=== PATIENT | female | born 1940 | race Caucasian/White ===

== ENCOUNTER 2016-09-15 00:12 | Inpatient (IN) ==
--- NOTE | 2016-09-15 01:27 | Emergency Department Note ---
Arrival - Arrival Chief Complaint: Fever Stated Complaint: fever, vomiting ED Nursing Triage Note: Patient to room via ems. Patient was transfered from [facility] for small bowel obstruction, uti. Patient has an NG tube at this time but is not hooked to suction. Mode of Arrival: Stretcher Limitations: Physical Limitation Source: Family, Old Records Reviewed Time Seen by Provider: 09/15/16 01:24 - History of Present Illness HPI Narrative: The patient was transferred here from [facility] for small bowel obstruction. She began having some vomiting last night. Today discontinued and she also had some fever. She was seen at [facility] where a CT revealed small bowel obstruction. She also had a UTI. The family states her colostomy output has remained normal. Allergies/Adverse Reactions: Allergies Allergy/AdvReac Type Severity Reaction Status Date / Time Donepezil [From Aricept] Allergy Severe ANAPHYLAXIS Verified 09/15/16 00:22 aripiprazole [From Abilify] Allergy Unknown Unknown/Unable Verified 09/15/16 00: 22 to obtain Home Medications: Home Medications Medication Instructions Recorded Confirmed Type Levothyroxine Tab [Synthroid Tab] 50 mcg PO DAILY@0700 05/08/15 09/15/16 History [place] [facility] Tab 300 mg PO BID 05/08/15 09/15/16 History Docusate Sodium Cap [Colace Cap] 100 mg PO BID #60 capsule 09/04/15 09/15/16 Rx amLODIPine [Norvasc] 5 mg PO DAILY 09/15/16 09/15/16 History Review of System - Review of System ROS unobtainable: due to mental status - Review of System Constitutional: Present: fever Gastrointestinal: Present: vomiting Medical,Surgical,& Family Hx - Medical History Cardio: History of: Hypertension Neurology: History of: Dementia Endocrine: History of: Thyroid Disorder No history of: Diabetes Mellitus (NIDDM) Respiratory: History of: Pneumonia No history of: COPD Genitourinary: Comment Only: Problems (urinary incontinence) Gastrointestinal: History of: Bowel Obstruction, GI Problems Musculoskeletal: History of: Musculoskeletal Problems (wheelchair/bed bound more than one year) No history of: Amputation Other: History of: Miscellaneous Medical Problems (early skin breakdown on the buttocks) - Surgical History Cardiac Surgeries: Patient Denies: Cardiac Catheterization Thoracic Surgeries: Patient denies;: Organ Transplant Neurologic Surgeries: Patient denies: Neurologic Surgery Abdominal Surgeries: Surgical HX of: Abdominal Surgery (colostomy) - Family History Family History: Reports;: Family Cancer (mother), Family Diabetes (sister type 1 ) - Social History Smoking Status: Unknown if ever smoked Frequency of Alcohol Use: Unknown Type of Drug Use: Unknown Exam Physical Examination: GENERAL: Sleeping. Arouses somewhat but will not speak. Cooperation is minimal. No acute distress. HEENT: Normocephalic and atraumatic. NG tube in place.. The patient will not cooperate with oropharyngeal exam. NECK: Normal inspection. Supple. No lymphadenopathy or meningismus. LUNGS: No respiratory distress. Clear to auscultation bilaterally, no wheezes, rales or rhonchi. HEART: Regular rate and rhythm. ABDOMEN: Soft, nontender and nondistended with hyperactive bowel sounds. Colostomy. BACK: Normal inspection. SKIN: Color normal. Warm and dry. EXTREMITIES: Extremities are nontender. No pedal edema. Patient is contracted. NEUROLOGICAL/PSYCHIATRIC: Lethargic. Will not cooperate with neuro exam. Cannot assess orientation. Vital Signs: Vital Signs Temperature 99.2 F 09/15/16 00:13 Pulse Rate 99 H 09/15/16 00:37 Respiratory Rate 15 09/15/16 00:37 Blood Pressure 163/86 09/15/16 00:37 O2 Sat by Pulse Oximetry 96 09/15/16 00:37 Course - Reevaluation(s) Reevaluation #1: I have discussed the patient with Dr. Pyle and will admit him for further workup. Time: 01:35 Results - Labs Lab Results: I have reviewed the patients labs Labs: Lab work was done at [facility] and is significant as follows: White blood cells 17.8 Hemoglobin 14.6 Hematocrit 45.7 Platelets 261 Neutrophils 74.9% Glucose 120 BUN 11 Creatinine 0.9 Bilirubin 0.5 ALT 18 AST 14 Lactic acid 0.9 Urine white blood cells too numerous to count Urine bacteria 3+ - Impressions CT of the abdomen and pelvis done at [place] shows a significant small bowel obstruction. Disposition Clinical Impression: Small bowel obstruction, UTI (urinary tract infection) Case discussed with: patient, patient's family Disposition: Still a Patient Condition: Stable Time of Disposition: 01:36
[2016-09-15] MEDS ORDERED: ONDANSETRON 4 MG/2 ML VIAL IV PRN (02:31)
[2016-09-15] MEDS ORDERED: ACETAMINOPHEN 325 MG TABLET PO PRN ×2 (02:31→09:51)
[2016-09-15] MEDS ORDERED: MORPHINE 2 MG/1 ML SYRINGE IV PRN (02:31)
[2016-09-15] MEDS: LEVOFLOXACIN INJ 750 MG in PREMIX 1 EACH IV SCH (03:36)
[2016-09-15] MEDS: DEXTROSE 5% LACTATED RINGERS 1,000 ML IV SCH ×3 (03:36→17:57)
[2016-09-15] MEDS ORDERED: PANTOPRAZOLE 40 MG TABLET PO SCH (09:00)
[2016-09-15] MEDS ORDERED: HYDROmorphone 2 MG/1 ML VIAL IV PRN (09:51)
--- NOTE | 2016-09-15 10:06 | General Surg History&Physical ---
Assessment and Plan - Time spent with patient Time spent with patient: Greater than 30 minutes (1) Small bowel obstruction Status: Acute Assessment and plan: Impression: 1. Nausea and vomiting questionable small bowel obstruction versus constipation 2. Fever etiology unclear at this time. 3. Possible urinary tract infection. 4. Alzheimer's disease. Plan: Maintain some NG tube drainage at this point time with careful observation. We will run some antibiotics to we get a good culture back from the urine and go ahead and culture her blood at this point. Open we will start some liquids tomorrow and see how she is doing at that time. Current Visit: No History of Present Illness Chief complaint: Admitted for vomiting and questionable small bowel obstruction History of present illness: Ms. Barrett is a 76 year old female white who has been a pretty much bedridden to chair patient due to advanced Alzheimer's disease. 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 She has had multiple episodes for nausea and vomiting and distention that were basically determined related to constipation. The family got into the habit and learn how to irrigate the colostomy to help keep things functional during this time. We had not seen her for some time. She came back in because she started to have one episode or no more than 2 of vomiting that the family was concerned about. They took her to [place] where they did a CT scan that was read out as being possible small bowel obstruction. She was admitted and put on some IV antibiotics. She had an NG tube placed and has tolerated very little drainage from it at this time. So far she has shown no sign of any significant obstructive process at this point time the abdomen is soft and it has normal bowel sounds. We have seen this phenomenon before own her and she is always would improve and open up light her own. Organic continue just to keep her with nothing by mouth at this time to allow things to see if they will improved before we consider starting any diet. She was running a little fever and that was a main concern the family was fever that she had developed and there is a possibility she has urinary tract infection will check that out when she is here. Home Medications Medication Instructions Recorded Confirmed Type Levothyroxine Tab [Synthroid Tab] 50 mcg PO DAILY@0700 05/08/15 09/15/16 History [place] [facility] Tab 300 mg PO BID 05/08/15 09/15/16 History Docusate Sodium Cap [Colace Cap] 100 mg PO BID #60 capsule 09/04/15 09/15/16 Rx amLODIPine [Norvasc] 5 mg PO DAILY 09/15/16 09/15/16 History Allergies Allergy/AdvReac Type Severity Reaction Status Date / Time Donepezil [From Aricept] Allergy Severe ANAPHYLAXIS Verified 09/15/16 00:22 aripiprazole [From Abilify] Allergy Unknown Unknown/Unable Verified 09/15/16 00: 22 to obtain Medical,Surgical,& Family Hx - Medical History Cardio: History of: Hypertension Neurology: History of: Dementia Endocrine: History of: Thyroid Disorder No history of: Diabetes Mellitus (NIDDM) Respiratory: History of: Pneumonia No history of: COPD Genitourinary: History of: Recurring Urinary Tract Infections, Problems ( urinary incontinence) Gastrointestinal: History of: Bowel Obstruction, GI Problems Musculoskeletal: History of: Musculoskeletal Problems (wheelchair/bed bound more than one year) No history of: Amputation Other: History of: Miscellaneous Medical Problems (early skin breakdown on the buttocks) - Surgical History Cardiac Surgeries: Patient Denies: Cardiac Catheterization Thoracic Surgeries: Patient denies;: Organ Transplant Neurologic Surgeries: Patient denies: Neurologic Surgery Abdominal Surgeries: Surgical HX of: Abdominal Surgery (colostomy) - Family History Family History: Reports;: Family Cancer (mother), Family Diabetes (sister type 1 ) - Social History Smoking Status: Never smoker Frequency of Alcohol Use: None Type of Drug Use: None Exam - Constitutional Vitals: Period Temp Pulse Resp BP Sys/Tompkins Pulse Ox Last 24 Hr 99.0 F-99.1 F 97-109 16-20 136-184/71-86 97-99 General appearance: mild distress - Head Head exam: Present: normal inspection - ENT ENT exam: Present: normal exam - Neck Neck exam: Present: normal inspection - Respiratory Respiratory exam: Present: rales, rhonchi - Cardiovascular Cardiovascular exam: Present: RRR - GI/Abdominal GI/Abdominal exam: Present: hypoactive bowel sounds, soft. Absent: distended, tenderness - Extremities Exam Extremities exam: Present: normal inspection, normal capillary refill - Back Exam Back exam: Present: normal inspection - Neurological Exam Neurological exam: Present: altered - Skin Skin exam: Present: normal color, warm, dry 12 point system: reviewed and no additional remarkable complaints except as stated Quality Measures - VTE Contraindication to Pharmacological VTE Prophylaxis: Clinical assessment deems Pt at low risk, no prophalaxis needed Results - Labs Lab Results: I have reviewed the past 24 hour labs
[2016-09-15] MEDS: ALUMINUM/MAGNES/SIMETH MAX STR 30 ML UDCUP PO SCH ×3 (10:36→22:47)
[2016-09-15] MEDS: metroNIDAZOLE INJ 500 MG in PREMIX 1 EACH IV SCH ×2 (10:36→17:56)
[2016-09-15] MEDS ORDERED: SKIN HEALING OINT (AQUAPHOR) 50 GM TUBE TOP PRN (11:07)
--- NOTE | 2016-09-15 12:00 | XRay Report ---
Referring Physician: Prem Pyle Exam: XR chest 1V portable Date: September 15, 2016 at 11:02 AM Reason: Fever Comparison: Chest one view portable September 14, 2016 Findings: A feeding tube is in place with its distal tip within the gastric fundus. The cardiac silhouette is normal in size. There is minimal atelectasis within both lower lung zones. No pneumothorax or pleural effusion is identified. No acute osseous process is seen. Impression: 1. Minimal scattered atelectasis within both lower lung zones. 2. A feeding tube is in place with its distal tip within the gastric fundus. PROCEDURE INTERPRETED AT [facility] DEPARTMENT OF RADIOLOGY Final Report Signed by: Dr. Mireya Schmitt
[2016-09-15 14:21] LABS: Apearance,Urine CLOUDY (Clear); Bilirubin,Urine Negative (Negative); Blood, Urine Small mg/dL (Negative); Glucose,Urine (UA) Negative (Negative); Ketones,Urine Negative (Negative); Nitrite,Urine Negative (Negative); Protein,Urine 100 MG/DL; RBC,Urine 6 /HPF (0-4); Urine Color Amber (Yellow); Urine Specific Gravity 1.005 (1.001-1.035); Urine Urobilinogen < 2.0 EU/DL (0.2-1.0); WBC,Urine 1362 /HPF (0-6)
[2016-09-15] MEDS: LITHIUM ER 300 MG TABLET PO SCH (22:46)
[2016-09-16] MEDS: metroNIDAZOLE INJ 500 MG in PREMIX 1 EACH IV SCH ×3 (02:19→17:58)
[2016-09-16] MEDS: DEXTROSE 5% LACTATED RINGERS 1,000 ML IV SCH ×3 (02:22→20:18)
[2016-09-16] MEDS: LEVOFLOXACIN INJ 750 MG in PREMIX 1 EACH IV SCH (04:00)
[2016-09-16] MEDS: ALUMINUM/MAGNES/SIMETH MAX STR 30 ML UDCUP PO SCH ×4 (04:02→21:15)
[2016-09-16 06:39] LABS: Basophils # 0.1 10*3/uL (0.0-0.2); Basophils % 0.5 % (0.0-0.8); Eosinophils # 1.7 10*3/uL (0.0-0.87); Eosinophils % 17.8 % (0.00-10.9); Hematocrit 38.8 VOL% (35.7-47.0); Hemoglobin 12.7 GM/DL (12.0-16.0); Immature Granulocytes % 0.4 %; Immature Granulocytes Absolute 0.04 #; Lymphocytes # 1.5 10*3/uL (1.4-4.0); Lymphocytes % 15.5 % (21.3-54.2); Mean Corpuscular HGB Conc 32.7 GM/DL (32-36); Mean Corpuscular Hemoglobin 32 PG (27-34); Mean Corpuscular Volume 96.3 FL (87-102); Mean Platelet Volume 10.1 FL (9.6-12.0); Monocytes # 0.8 10*3/uL (0.11-0.8); Monocytes % 8.6 % (1.7-12.7); Neutrophils # 5.4 10*3/uL (1.4-7.4); Neutrophils % 57.2 % (38.7-73.9); Platelet Count 225 T/CUMM (130-400); Red Blood Count 4.03 MC/CUMM (3.8-5.5); Red Cell Distribution Width 13.2 % (9.3-17.3); White Blood Count 9.5 T/CUMM (4-12)
[2016-09-16] MEDS: LEVOTHYROXINE 50 MCG TABLET PO SCH (06:56)
[2016-09-16 07:07] LABS: Eosinophils 18 % (0-10); Hypochromasia Slight; Lymphocytes 11 % (20-55); Segmented Neutrophils 65 % (50-85); Total Cells Counted 100
[2016-09-16 07:08] LABS: Platelet Estimate Normal
[2016-09-16 07:15] LABS: Albumin 3.3 G/DL (3.4-5.0); Bilirubin,Total 1.3 MG/DL (0.2-1.0); Calcium 8.8 MG/DL (8.5-10.1); Magnesium 2.1 MG/DL (1.8-2.4); Osmolality,Calculated 285.7 MOS/KG (273-304); Potassium 3.5 MMOL/L (3.5-5.1); Total Protein 6.2 G/DL (6.4-8.3)
--- NOTE | 2016-09-16 07:44 | XRay Report ---
XR abdomen 1V Indication: SBO Comparison: Abdominal x-ray dated October 05, 2015 Technique: Single frontal view of the abdomen Findings: Nonspecific bowel gas pattern. Ostomy projects over the left lower quadrant. Multiple surgical clips noted within the lower abdomen and pelvis. Presumed pelvic phleboliths. Osseous structures appear grossly unchanged. IMPRESSION: No acute abnormality demonstrated. PROCEDURE INTERPRETED AT [facility] DEPARTMENT OF RADIOLOGY Final Report Signed by: Dr Myron Wall
--- NOTE | 2016-09-16 08:22 | XRay Report ---
XR chest 1V portable Indication: Fever Comparison: Chest x-ray dated September 15, 2016 Technique: Single frontal view of the chest Findings: Cardiomediastinal silhouette is stable in configuration. Continued mild elevation of left hemidiaphragm as well as chronic change of the lungs and minimal bilateral basilar atelectasis. Skinfold projects over the lateral/lower left lung. Osseous and surrounding soft tissue structures otherwise appear grossly unchanged. IMPRESSION: No adverse interval change. PROCEDURE INTERPRETED AT [facility] DEPARTMENT OF RADIOLOGY Final Report Signed by: Dr Myron Wall
[2016-09-16] MEDS: LITHIUM ER 300 MG TABLET PO SCH ×2 (09:00→21:28)
[2016-09-16] MEDS: amLODIPine 5 MG TABLET PO SCH (09:00)
[2016-09-16] MEDS: PANTOPRAZOLE 40 MG VIAL IV SCH (09:07)
--- NOTE | 2016-09-16 11:01 | General Surgery Progress Note ---
Assessment and Plan - Time spent with patient Time spent with patient: Less than 30 minutes (1) Small bowel obstruction Status: Acute Assessment and plan: 09/16/[address] evidence of partial small bowel obstruction. Nothing seen on today's films to suggest obstruction and she seems comfortable with a normal abdominal examination. We will clamp NG tube and add clears, watch for signs of obstruction. This may be a pseudoobstruction type pattern. Given her history of Parkinson's we will progress cautiously, holding the NG tube for now and watch for signs of nausea or vomiting. Current Visit: No (2) Urinary tract infection Status: Acute Assessment and plan: 09/16/2016. Gram-negative urinary tract infection. Labs and vital signs are stable and there is nothing to suggest urosepsis. She has Levaquin currently ordered, and watch for signs of improvement. Current Visit: No Exam - Constitutional Vitals: Period Temp Pulse Resp BP Sys/Tompkins Pulse Ox Last 24 Hr 98.6 F-99.8 F 97-114 14-20 116-175/68-98 95-97 General appearance: no acute distress - Respiratory Respiratory exam: Present: clear to auscultation bilaterally - GI/Abdominal GI/Abdominal exam: Present: normal bowel sounds, other (Left lower quadrant colostomy with no stool in bag. Stoma is pink.). Absent: distended, guarding Results - Labs CBC & BMP: 09/16/16 05:34 09/16/16 05:34 Lab Results: I have reviewed the past 24 hour labs (Labs are stable. KUB shows no obstructive process. chest x-ray shows no acute changes. Micro shows gram- negative rods on preliminary urine specimen.) Quality Measures - VTE Contraindication to Pharmacological VTE Prophylaxis: Clinical assessment deems Pt at low risk, no prophalaxis needed
[2016-09-17] MEDS: metroNIDAZOLE INJ 500 MG in PREMIX 1 EACH IV SCH ×3 (01:43→17:52)
[2016-09-17] MEDS: LEVOFLOXACIN INJ 750 MG in PREMIX 1 EACH IV SCH (03:19)
[2016-09-17] MEDS: ALUMINUM/MAGNES/SIMETH MAX STR 30 ML UDCUP PO SCH ×4 (03:20→21:14)
[2016-09-17] MEDS: DEXTROSE 5% LACTATED RINGERS 1,000 ML IV SCH ×4 (06:34→17:37)
[2016-09-17] MEDS: LEVOTHYROXINE 50 MCG TABLET PO SCH (06:35)
--- NOTE | 2016-09-17 07:01 | XRay Report ---
XR abdomen 1V Indication: SBO Comparison: Abdominal x-ray dated September 16, 2016 Technique: Single frontal view of the abdomen Findings: Nonspecific bowel gas pattern. Ostomy again noted projecting over the left lower quadrant. Multiple clips again project over the left lower abdomen and pelvis. Diffuse osteopenia. Presumed pelvic phleboliths. IMPRESSION: No acute abnormality or adverse interval change demonstrated. PROCEDURE INTERPRETED AT [facility] DEPARTMENT OF RADIOLOGY Final Report Signed by: Dr Myron Wall
[2016-09-17] MEDS: PANTOPRAZOLE 40 MG VIAL IV SCH (08:08)
[2016-09-17] MEDS: amLODIPine 5 MG TABLET PO SCH (08:08)
[2016-09-17] MEDS: LITHIUM ER 300 MG TABLET PO SCH ×2 (08:08→20:35)
--- NOTE | 2016-09-17 09:26 | General Surgery Progress Note ---
Assessment and Plan - Time spent with patient Time spent with patient: Less than 30 minutes (1) Small bowel obstruction Status: Acute Assessment and plan: 09/17/16 Improving SBO. We will plan to irrigate ostomy today, give 30mL Mineral oil per NG, then D/C and advance diet as tolerated. She certainly is more alert today. 09/16/[address] evidence of partial small bowel obstruction. Nothing seen on today's films to suggest obstruction and she seems comfortable with a normal abdominal examination. We will clamp NG tube and add clears, watch for signs of obstruction. This may be a pseudoobstruction type pattern. Given her history of Parkinson's we will progress cautiously, holding the NG tube for now and watch for signs of nausea or vomiting. Current Visit: No (2) Urinary tract infection Status: Acute Assessment and plan: 09/16/2016. Gram-negative urinary tract infection. Labs and vital signs are stable and there is nothing to suggest urosepsis. She has Levaquin currently ordered, and watch for signs of improvement. Current Visit: No Subjective Patient reports: Present: other (Pt verbalizes today that she is better. ) Exam - Constitutional Vitals: Period Temp Pulse Resp BP Sys/Tompkins Pulse Ox Last 24 Hr 98.6 F-99.2 F 80-106 16-20 135-162/67-79 96-97 General appearance: no acute distress, other (She is awake and alert; she communicates verbally, mostly unintelligible words but she does understandibly say she feels better.) - ENT Mouth exam: Present: dry mucosa - Cardiovascular Cardiovascular exam: Present: RRR - GI/Abdominal GI/Abdominal exam: Present: normal bowel sounds, soft, other (No stool in ostomy bag.). Absent: guarding, tenderness Results - Labs CBC & BMP: 09/16/16 05:34 09/16/16 05:34 Lab Results: I have reviewed the past 24 hour labs - Diagnostic Findings Procedure: KUB x-ray: report reviewed by me (Normal KUB) Quality Measures - VTE Contraindication to Pharmacological VTE Prophylaxis: Clinical assessment deems Pt at low risk, no prophalaxis needed
[2016-09-17] MEDS ORDERED: MINERAL OIL 30 ML UDCUP PO ONE (10:00)
[2016-09-18] MEDS: metroNIDAZOLE INJ 500 MG in PREMIX 1 EACH IV SCH ×2 (01:35→10:35)
[2016-09-18] MEDS: DEXTROSE 5% LACTATED RINGERS 1,000 ML IV SCH ×2 (03:24→10:07)
[2016-09-18] MEDS: LEVOFLOXACIN INJ 750 MG in PREMIX 1 EACH IV SCH (03:26)
[2016-09-18] MEDS: ALUMINUM/MAGNES/SIMETH MAX STR 30 ML UDCUP PO SCH ×2 (03:27→08:59)
[2016-09-18] MEDS: LEVOTHYROXINE 50 MCG TABLET PO SCH (06:28)
[2016-09-18] MEDS: amLODIPine 5 MG TABLET PO SCH (08:59)
[2016-09-18] MEDS: PANTOPRAZOLE 40 MG VIAL IV SCH (09:00)
[2016-09-18] MEDS: LITHIUM ER 300 MG TABLET PO SCH (09:00)
[2016-09-18 11:26] VITALS: BP 120/62
--- NOTE | 2016-09-18 12:03 | Discharge Summary ---
Hospital Course - Hospital Course Hospital Course: 09/18/2016 Brief summary This 76-year-old white female was admitted to the emergency room on 09/15/2016 after onset the previous evening of nausea and vomiting. She has no neurological deficit, with some mild dementia. She she is completely bedbound and had under gone a diverting colostomy for sigmoid volvulus in April 2015. Since that time she has had intermittent bouts of small bowel obstruction, but has not yet not required any additional surgery. With the onset nausea and vomiting her family became concerned and she was taken to the emergency room at [facility], where she was found to have CT evidence of small bowel obstruction. White count was not elevated other labs were essentially within normal limits, except for an abnormal urinalysis which suggest UTI. At that point it was felt that she would benefit from transfer to this facility, and she was brought by ambulance to [facility]. Upon arrival to the hospital here she was found to have a white count 15,000, NG in place with very little output, and had she had normoactive bowel sounds, was not distended, and showed no external clinical signs of guarding or tenderness. We elected to admit her, place her on IV fluids and bowel rest, and low suction to the NG tube. She was given Levaquin IV empirically to treat urinary tract infection. Following morning she continued having normoactive bowel sounds, and her serial x-rays showed good bowel gas pattern. We advanced her to clear liquids, which he tolerated well. We had no solid stool output from the ostomy, so we began irrigating the ostomy, with good results. She did have what appeared to be very constipated stool, so at that point we added mineral oil per NG tube. Her diet was advanced to full liquids, which she tolerated extremely well, with very good appetite, and today we are able to advance her to soft diet. She is actually quite alert today and she will respond occasionally to verbal stimuli, and does indicate verbally that she is not in any discomfort. The family is adequately prepared to take care of her at home, and she does have 24 hour sitters at home, and home health to support her in addition. Therefore with her ostomy functioning she has had absolutely no other episodes of nausea and vomiting, and the urinary tract infection is treated. We will therefore discharge her home today. We will keep her on an additional 5 days of p.o. Levaquin and have him use mineral oil p.o. for 1-2 doses as needed as an adjunct to her ostomy irrigations. We will have her continue all of her other home medications, and plan to follow-up in our office in approximately 6 weeks, unless she exhibits any signs of recurrence. She will also follow-up with her primary care physician for routine medical conditions. - Time spent with patient Time with patient DS: Less than 30 minutes Diagnosis - Discharge Diagnosis (1) Small bowel obstruction Status: Acute (2) Urinary tract infection Status: Acute Specialty Discharge - Follow Up or Referrals Follow up with: Prem Pyle MD [Physician] - (4-6 weeks) Discharge Plan - Discharge Data Disposition: Disch To Home/Self Care Condition at Discharge: Stable Discharge Diet: advance to your usual diet, other (Take 1-2 tablespoons of mineral oil by mouth once or twice weekly as needed if the stool seems dry) Hygiene: no restrictions Contact your physician if you experience:: fever over 101, Nausea/Vomiting Wound / Dressing Care Instructions: Continue every other day colostomy irrigations as previously - Discharge Medications New levoFLOXacin [Levaquin] 500 mg PO DAILY #5 tablet Continue Levothyroxine Tab [Synthroid Tab] 50 mcg PO DAILY@0700 [place] [facility] Tab 300 mg PO BID Docusate Sodium Cap [Colace Cap] 100 mg PO BID #60 capsule amLODIPine [Norvasc] 5 mg PO DAILY - Follow Up or Referral Follow Up: Prem Pyle MD [Physician] - - Forms/Instructions Instructions: Bowel Obstruction (DC), Urinary Tract Infection in Women, [employer] (GEN) Exam - Constitutional Vitals: Period Temp Pulse Resp BP Sys/Tompkins Pulse Ox Last 24 Hr 97.1 F-99.3 F 72-86 15-20 120-149/59-86 95-98 General appearance: normal weight, no acute distress - Head Head exam: Present: normocephalic - Respiratory Respiratory exam: Present: clear to auscultation bilaterally. Absent: rales, wheezes - Cardiovascular Cardiovascular exam: Present: regular rate and rhythm - GI/Abdominal GI/Abdominal exam: Present: normal bowel sounds, soft, other (Scant brown stool in her colostomy bag.). Absent: guarding, tenderness - Neurological Exam Neurological exam: Present: alert, other (She does sleep more responsive today. No spasticity or involuntary musculoskeletal movements) Discharge Results Procedures and tests throughout hospitalization: Pending Orders 09/15/16 09:51 Blood Culture Stat 09/18/16 04:00 XR abdomen 1V IN AM Labs on day of discharge: Preliminary micro results at discharge 09/15/16 09:51 Blood Culture - Preliminary Blood No growth at 3 days 09/15/16 09:51 Blood Culture - Preliminary Blood No growth at 3 days - Imaging and Cardiology Procedure: KUB x-ray: image reviewed by me (KUB image was reviewed by me, there is no report, but it does show what appears to be normal gas pattern pattern throughout) DS: Provider Date of admission: 09/15/16 01:36 Primary care physician: . No PCP Attending physician on admission: Prem Pyle MD Consults: 09/15/16 10:17 Consult to Pharmacy [CONS] Routine Reason for Pharmacy Consult: Adjust Meds Renal Funct Discharging clinician: Katelyn Howard CNP, R
--- NOTE | 2016-09-18 13:30 | Physician Query Form ---
CLICK EDIT DOCUMENT TO SELECT QUERY ANSWER --> OK --> SIGN Magy Julien RN, CCDS Certified Clinical [employer] D[employer] V[employer] Tender W) [phone] (f) [phone] [email or web address]: Make your selection(s) from the choices in EACH section by typing an "x" and enter comments in the comment section. Please use your independent medical judgment in providing your response. This request does not imply that any particular answer is desired or expected. CLINICAL INDICATORS: (Providers should not edit this section) The medical record indicates that the patient was admitted with a SBO, "arouses somewhat but will not speak", LLQ Colostomy, yair noted, Hygiene Ability " Total Care", Feeding Ability "Total Care", Ambulation Ability "Total Care", " she is completely bedbound" and "Patient is contracted". Which, if any, of the following is an etiology of the above abnormalities and treatment rendered: ( ) Functional quadriplegia (complete immobility due to severe physical disability or frailty due to non-neurologic cause) ( ) Quadriplegia due to a neurologic cause, please specify: ( ) Paraplegia due to a neurologic cause, please specify: ( ) Hemiplegia/hemiparesis due to a neurologic cause, please specify: ( ) Complete Immobility (due to frailty or severe physical disability) ( ) Persistent vegetative state ( ) Critical illness myopathy (difficulty weaning patients from mechanical ventilation or prolonged recovery after illness) ( ) General weakness (x ) Other cause, please specify:Debility secondary to advanced dementia ( ) Clinically unable to determine COMMENTS:Sorry for the delay. I have searched the records for a truly documented neurological diagnosis, both here and in the office, and have found none; even her family's written description of her medical issues/conditions only list dementia. Use of terms such as suspected, likely, or probable (associated with a specific diagnosis that is being evaluated, monitored, or treated as if it exists) are acceptable and can be restated in the discharge summary if not ruled out. MTDD
--- NOTE | 2016-09-18 15:03 | XRay Report ---
XR abdomen 1V Indication: SBO Comparison: Abdominal x-ray dated September 17, 2016 Technique: Single frontal view of the abdomen Findings: Nonspecific bowel gas pattern. Multiple surgical clips again noted within the left lower quadrant and pelvis. Presumed pelvic phleboliths. Diffuse osteopenia. IMPRESSION: No adverse interval change. PROCEDURE INTERPRETED AT [facility] DEPARTMENT OF RADIOLOGY Final Report Signed by: Dr Myron Wall
== END 2016-09-18 14:32 | disposition home or self-care (01) | DRG 389 ==
LOC: EDBD → EDUNIT# → N.ED 00:12 → N.EDINP 01:36 → N.3E 01:57
PROVIDERS: ADMIT Specialist; ATTEND Specialist

== ENCOUNTER 2016-11-15 15:07 | Inpatient (IN) ==
[2016-11-15] MEDS ORDERED: SODIUM CHLORIDE 0.9% 500 ML IV STA (15:42)
[2016-11-15] MEDS ORDERED: PANTOPRAZOLE 40 MG VIAL IV STA (15:42)
[2016-11-15 16:00] LABS: Basophils % 0.2 % (0.0-0.8); Hematocrit 48.3 VOL% (35.7-47.0); Immature Granulocytes % 0.3 %; Immature Granulocytes Absolute 0.04 #; Lymphocytes # 0.7 10*3/uL (1.4-4.0); Lymphocytes % 4.7 % (21.3-54.2); Mean Corpuscular HGB Conc 33.1 GM/DL (32-36); Mean Corpuscular Hemoglobin 31 PG (27-34); Mean Corpuscular Volume 94.5 FL (87-102); Mean Platelet Volume 10.3 FL (9.6-12.0); Monocytes # 0.8 10*3/uL (0.11-0.8); Monocytes % 5.2 % (1.7-12.7); Neutrophils # 14.2 10*3/uL (1.4-7.4); Neutrophils % 89.6 % (38.7-73.9); Platelet Count 242 T/CUMM (130-400); Red Blood Count 5.11 MC/CUMM (3.8-5.5); Red Cell Distribution Width 12.9 % (9.3-17.3); White Blood Count 15.8 T/CUMM (4-12)
[2016-11-15] MEDS ORDERED: ONDANSETRON 4 MG/2 ML VIAL IV STA (16:08)
[2016-11-15] MEDS ORDERED: ONDANSETRON 4 MG/2 ML VIAL ONE (16:12)
[2016-11-15] MEDS ORDERED: PANTOPRAZOLE 40 MG VIAL IV ONE (16:12)
[2016-11-15 16:18] LABS: Albumin 4.4 G/DL (3.4-5.0); Bilirubin,Total 0.9 MG/DL (0.2-1.0); Calcium 10.1 MG/DL (8.5-10.1); Total Protein 7.9 G/DL (6.4-8.3)
[2016-11-15 16:19] LABS: Potassium 4.8 MMOL/L (3.5-5.1)
--- NOTE | 2016-11-15 16:23 | CT Report ---
CT of the abdomen and pelvis with intravenous contrast. Axial images were obtained with sagittal and coronal reconstructions. Comparison is made to a previous exam of September 14, 2016. From the [facility]. 100 cc Omni 350. Indication: Vomiting heme-positive emesis. Findings: The heart is normal in size. There is coronary artery calcification. There are areas of scarring and atelectasis at the lung bases. There is no pericardial or pleural effusion. The liver is normal in size and density. No focal liver lesions are identified. There is no intrahepatic biliary ductal dilatation. There is no pancreatic enlargement. There is no adrenal enlargement. There is no splenic enlargement. There is moderate calcific plaque present within a normal caliber abdominal aorta, extending into the origins of the left renal artery of the SMA. There is marked distention of the stomach. The stomach is filled with fluid and mucus material. The esophagus is distended and filled with fluid. The small intestine is severely dilated loops of small intestine measure up to 5.4 cm in diameter. There is an abrupt transition zone in the central pelvis. The terminal ileum and appendix present a normal appearance. The ascending and transverse colon are moderately collapsed. With some air and fecal material present. There is a left lower quadrant ostomy, which appears to be a colonoscopy. There is fecal material in the rectal vault. The uterus is normal in size. No ovarian enlargement is seen. Degenerative changes are present within the spinal column. Impression: 1. Findings most suggestive of a left lower quadrant colostomy. 2. Marked disproportionate dilatation of small intestine, with a transition zone in the small intestine within the central pelvis, consistent with small bowel obstruction. 3. Small amount of free fluid. 4. Marked gastric an esophageal distention with fluid. Findings were discussed with Dr. Trejo at the time of dictation. The CT exam was performed using one or more of the following dose reduction techniques: Automated exposure control, adjustment of the mA and/or kV according to patient size, or use of iterative reconstruction technique. PROCEDURE INTERPRETED AT [facility] DEPARTMENT OF RADIOLOGY Final Report Signed by: Dr. Niki Berumen
--- NOTE | 2016-11-15 16:28 | Emergency Department Note ---
Jo Lyn Hilary, am scribing for, and in the presence of, Negro Trejo MD 15:48. Maya Lyn Phillip K, MD, personally performed the services described in this documentation, ascribed by Florencia Osorio in my presence, and it is both accurate and complete [id number] . Arrival - Arrival Chief Complaint: Nausea/Vomiting/Diarrhea Stated Complaint: n/v ED Nursing Triage Note: Brought in by EMS c/o N/v-onset earlier today. Patient vomited coffee ground emesis after being moved to stretcher. Mode of Arrival: Stretcher Limitations: No Limitations Source: Family, RN Notes Reviewed Time Seen by Provider: 11/15/16 15:34 - History of Present Illness HPI Narrative: Pt is a 76 female brought into the ED with c/o nausea and vomiting which onset earlier today. Patient is non verbal normally due to dementia and encephalopathy. Pts family is in the room and reports that she threw up coffee ground emesis and blood but denies black stool or fever. Pt has a PMHx of HTN, dementia, thyroid disorder, pneumonia, Bowel obstruction, and urinary incontinence. Onset (ago): hour(s) Consistency: intermittent Severity: mild Severity scale (1-10): 1 Allergies/Adverse Reactions: Allergies Allergy/AdvReac Type Severity Reaction Status Date / Time Donepezil [From Aricept] Allergy Severe ANAPHYLAXIS Verified 09/15/16 00:22 aripiprazole [From Abilify] Allergy Unknown Unknown/Unable Verified 09/15/16 00: 22 to obtain Home Medications: Home Medications Medication Instructions Recorded Confirmed Type Levothyroxine Tab [Synthroid Tab] 50 mcg PO DAILY@0700 05/08/15 09/15/16 History [place] [facility] Tab 300 mg PO BID 05/08/15 09/15/16 History Docusate Sodium Cap [Colace Cap] 100 mg PO BID #60 capsule 09/04/15 09/15/16 Rx amLODIPine [Norvasc] 5 mg PO DAILY 09/15/16 09/15/16 History levoFLOXacin [Levaquin] 500 mg PO DAILY #5 tablet 09/18/16 Rx Review of System - Review of System ROS unobtainable: due to dementia, due to encephalopathy 12 point system: reviewed and no additional remarkable complaints except as stated - Review of System Constitutional: Absent: fever Gastrointestinal: Present: vomiting, hematemesis Medical,Surgical,& Family Hx - Medical History Cardio: History of: Hypertension Neurology: History of: Dementia Endocrine: History of: Thyroid Disorder No history of: Diabetes Mellitus (NIDDM) Respiratory: History of: Pneumonia Genitourinary: History of: Recurring Urinary Tract Infections, Problems ( urinary incontinence) Gastrointestinal: History of: Bowel Obstruction, GI Problems Musculoskeletal: History of: Musculoskeletal Problems (wheelchair/bed bound more than one year) No history of: Amputation Other: History of: Miscellaneous Medical Problems (early skin breakdown on the buttocks) - Surgical History Cardiac Surgeries: Patient Denies: Cardiac Catheterization Thoracic Surgeries: Patient denies;: Organ Transplant Neurologic Surgeries: Patient denies: Neurologic Surgery Abdominal Surgeries: Surgical HX of: Abdominal Surgery (colostomy) - Family History Family History: Reports;: Family Cancer (mother), Family Diabetes (sister type 1 ) - Social History Smoking Status: Never smoker Frequency of Alcohol Use: None Type of Drug Use: None Marital Status: Single Lives With:: Children Functional capacity: bed bound Exam Vital Signs: Vital Signs Temperature 98.3 F 11/15/16 15:18 Pulse Rate 113 H 11/15/16 15:18 Respiratory Rate 22 11/15/16 15:18 Blood Pressure 158/92 11/15/16 15:18 O2 Sat by Pulse Oximetry 98 11/15/16 15:18 - General Exam limited due to: other (doesnt respond to commands or quesetions. Encephalopathy) General appearance: in no apparent distress, lethargic - Head Head exam: Present: atraumatic, normocephalic - Eye Eye exam: Present: normal appearance, PERRL, EOMI - ENT ENT exam: Present: mucous membranes dry, TM's normal bilaterally. Absent: mucous membranes moist - Neck Neck exam: Present: full ROM, trachea midline. Absent: tenderness - Chest Chest inspection: Present: symmetric chest wall rise. Absent: tenderness - Respiratory Respiratory exam: Present: normal lung sounds bilaterally. Absent: respiratory distress - Cardiovascular Cardiovascular exam: Present: normal rhythm, tachycardia, normal heart sounds. Absent: murmur, rubs, gallop - Abdominal Exam Abdominal exam: Present: soft, distention (slight), tenderness, hypoactive bowel sounds (none) - Extremities Exam Extremities exam: Present: full ROM. Absent: tenderness - Back Exam Back exam: Present: full ROM. Absent: tenderness - Skin Skin exam: Present: warm, dry, intact, normal color. Absent: rash Results - Labs CBC & BMP: 11/15/16 15:48 11/15/16 15:48 Lab Results: I have reviewed the patients labs Labs: Laboratory Tests 11/15/16 11/15/16 11/15/16 15:48 15:48 15:55 WBC 15.8 H RBC 5.11 Hgb 16.0 Hct 48.3 H Plt Count 242 Neut % (Auto) 89.6 H Lymph % (Auto) 4.7 L Neut # (Auto) 14.2 H Lymph # (Auto) 0.7 L Sodium 136 Potassium 4.8 Chloride 102 Carbon Dioxide 22 Anion Gap 16.8 H BUN 35 H Creatinine 1.70 H POC Creatinine 1.12 H Glucose 172 H Total Protein 7.9 - Diagnostic Findings Procedure: CT Abdomen and Pelvis: report reviewed by me (Small bowel obstruction ) Disposition Clinical Impression: Small bowel obstruction, Coffee ground emesis Case discussed with: patient, patient's family Disposition: Still a Patient Condition: Guarded Additional Instructions: Patient discussed with Dr. Pyle and Dr. Thompson. We will admit and place an NG tube for suction.
[2016-11-15] MEDS ORDERED: LACTATED RINGERS 1,000 ML IV ONE (16:56)
--- NOTE | 2016-11-15 17:07 | General Surg History&Physical ---
Assessment and Plan (1) Small bowel obstruction Status: Acute Assessment and plan: The patient does not have any acute indications for operative intervention. She will be treated with conservative management including bowel rest with NG tube and Guido catheter with IV fluid resuscitation. We will repeat her lab work in the morning and put her on the floor bed for tonight. Discussed her mental status with her [id number] who is in the room with her and she is at her baseline currently but she does have fairly severe dementia. Current Visit: Yes History of Present Illness Chief complaint: Abdominal pain History of present illness: Ms. 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 Pyle in 2015 who has been admitted in the past with small bowel obstructions and returns with a recurrent episode of small bowel obstruction. Lab work shows leukocytosis and renal dysfunction. Patient was treated with IV fluid and NG tube and Guido was placed. CT scan showed small bowel. Patient did not have peritoneal signs. Home Medications Medication Instructions Recorded Confirmed Type Levothyroxine Tab [Synthroid Tab] 50 mcg PO DAILY@0700 05/08/15 09/15/16 History [place] ER Tab 300 mg PO BID 05/08/15 09/15/16 History Docusate Sodium Cap [Colace Cap] 100 mg PO BID #60 capsule 09/04/15 09/15/16 Rx amLODIPine [Norvasc] 5 mg PO DAILY 09/15/16 09/15/16 History levoFLOXacin [Levaquin] 500 mg PO DAILY #5 tablet 09/18/16 Rx Allergies Allergy/AdvReac Type Severity Reaction Status Date / Time Donepezil [From Aricept] Allergy Severe ANAPHYLAXIS Verified 09/15/16 00:22 aripiprazole [From Abilify] Allergy Unknown Unknown/Unable Verified 09/15/16 00: 22 to obtain Medical,Surgical,& Family Hx - Medical History Cardio: History of: Hypertension Neurology: History of: Dementia Endocrine: History of: Thyroid Disorder No history of: Diabetes Mellitus (NIDDM) Respiratory: History of: Pneumonia Genitourinary: History of: Recurring Urinary Tract Infections, Problems ( urinary incontinence) Gastrointestinal: History of: Bowel Obstruction, GI Problems Musculoskeletal: History of: Musculoskeletal Problems (wheelchair/bed bound more than one year) No history of: Amputation Other: History of: Miscellaneous Medical Problems (early skin breakdown on the buttocks) - Surgical History Cardiac Surgeries: Patient Denies: Cardiac Catheterization Thoracic Surgeries: Patient denies;: Organ Transplant Neurologic Surgeries: Patient denies: Neurologic Surgery Abdominal Surgeries: Surgical HX of: Abdominal Surgery (colostomy) - Family History Family History: Reports;: Family Cancer (mother), Family Diabetes (sister type 1 ) - Social History Smoking Status: Never smoker Frequency of Alcohol Use: None Type of Drug Use: None Exam - Constitutional Vitals: Period Temp Pulse Resp BP Sys/Tompkins Pulse Ox Last 24 Hr 98.3 F-98.3 F 113-113 22-22 158-158/92-92 98 General appearance: normal weight, no acute distress - Head Head exam: Present: normal inspection, normocephalic - Eye Eye exam: Present: EOMI Pupils: Present: MINESH - ENT ENT exam: Present: normal exam Mouth exam: Present: normal external inspection - Neck Neck exam: Present: normal inspection, trachea midline - Respiratory Respiratory exam: Present: clear to auscultation bilaterally. Absent: accessory muscle use, chest wall tenderness - Cardiovascular Cardiovascular exam: Present: tachycardia. Absent: irregular rhythm, systolic murmur - GI/Abdominal GI/Abdominal exam: Present: distended, hypoactive bowel sounds, soft. Absent: guarding, tenderness, rebound - Extremities Exam Extremities exam: Present: normal inspection, normal capillary refill - Back Exam Back exam: Present: normal inspection - Skin Skin exam: Present: normal color, warm - Constitutional Constitutional: Present: as per HPI - EENT Nose, mouth and throat: Present: as per HPI - Cardiovascular Cardiovascular: Present: as per HPI - Respiratory Respiratory: Present: as per HPI - Gastrointestinal Gastrointestinal: Present: as per HPI - Genitourinary Genitourinary: Present: as per HPI - Musculoskeletal Musculoskeletal: Present: as per HPI - Neurological Neurological: Present: as per HPI - Endocrine Endocrine: Present: as per HPI Hematologic/Lymphatic: Present: as per HPI Results - Labs CBC & BMP: 11/15/16 15:48 11/15/16 15:48 - Diagnostic Findings Procedure: CT Abdomen and Pelvis: image reviewed by me, report reviewed by me ( Small bowel obstruction with transition point in the pelvis. No pneumatosis or free air)
--- NOTE | 2016-11-15 18:01 | EKG Report ---
Stationary ECG Study [facility] ER Test Date: 11/15/2016 6:01:24 PM Pat Name: ERASMO GALEANA [facility] Gender[facility] F Replenishment Associate: : 1940 Requested by: Negro Santoyo Order Number: [id number] Reading MD: MARINA ANDERSON Intervals [place] Rate: 124 P: 38 NE: 102 QRS: -9 QRSD: 86 T: 0 QT: 247 QTc: 321 Interpretive Statements SINUS TACHYCARDIA WITH SHORT NE INTERVAL WITH OCCASIONAL ECTOPIC PREMATURE COMPLEXES VOLTAGE CRITERIA FOR LVH Electronically Signed On 11-15-16 19:24:47 CDT by MARINA ANDERSON [email or web address]
[2016-11-15 18:02] LABS: Apearance,Urine Slightly Hazy (Clear); Bacteria,Urine Occasional /HPF (Few); Bilirubin,Urine Negative (Negative); Blood, Urine Small mg/dL (Negative); Glucose,Urine (UA) Negative (Negative); Hyaline Casts,Urine 19 /LPF (0-3); Ketones,Urine Negative (Negative); Mucus,Urine Few /LPF (Occasional); Nitrite,Urine Negative (Negative); Protein,Urine 30 MG/DL; RBC,Urine 4 /HPF (0-4); Squamous Epithelial Cell,Urine Occasional /HPF (0-10); Urine Color Yellow (Yellow); Urine Specific Gravity 1.028 (1.001-1.035); Urine Urobilinogen < 2.0 EU/DL (0.2-1.0); WBC,Urine 3 /HPF (0-6)
[2016-11-15 18:18] LABS: Hypochromasia Slight
[2016-11-15] MEDS ORDERED: PROMETHAZINE 25 MG/1 ML VIAL IM PRN (18:44)
[2016-11-15] MEDS ORDERED: ACETAMINOPHEN 325 MG TABLET PO PRN (18:44)
[2016-11-15] MEDS ORDERED: HYDROmorphone 2 MG/1 ML VIAL IV PRN (18:44)
[2016-11-15] MEDS ORDERED: ONDANSETRON 4 MG/2 ML VIAL IV PRN (18:44)
[2016-11-15] MEDS: LACTATED RINGERS 1,000 ML IV SCH (19:36)
[2016-11-15] MEDS: LITHIUM ER 300 MG TABLET PO SCH (20:58)
[2016-11-16] MEDS: LACTATED RINGERS 1,000 ML IV SCH ×3 (05:13→17:46)
[2016-11-16 06:35] LABS: Basophils % 0.2 % (0.0-0.8); Eosinophils % 0.3 % (0.00-10.9); Hematocrit 39.3 VOL% (35.7-47.0); Hemoglobin 13.1 GM/DL (12.0-16.0); Immature Granulocytes % 0.5 %; Immature Granulocytes Absolute 0.05 #; Lymphocytes # 1.4 10*3/uL (1.4-4.0); Lymphocytes % 12.6 % (21.3-54.2); Mean Corpuscular HGB Conc 33.3 GM/DL (32-36); Mean Corpuscular Hemoglobin 31 PG (27-34); Mean Platelet Volume 10.6 FL (9.6-12.0); Monocytes % 9.3 % (1.7-12.7); Neutrophils # 8.3 10*3/uL (1.4-7.4); Neutrophils % 77.1 % (38.7-73.9); Platelet Count 220 T/CUMM (130-400); Red Blood Count 4.18 MC/CUMM (3.8-5.5); Red Cell Distribution Width 13.1 % (9.3-17.3); White Blood Count 10.8 T/CUMM (4-12)
[2016-11-16] MEDS: LEVOTHYROXINE 50 MCG TABLET PO SCH (06:44)
[2016-11-16 07:05] LABS: Osmolality,Calculated 288.3 MOS/KG (273-304); Potassium 4.3 MMOL/L (3.5-5.1)
[2016-11-16] MEDS: PANTOPRAZOLE 40 MG TABLET PO SCH (08:39)
[2016-11-16] MEDS: LITHIUM ER 300 MG TABLET PO SCH ×2 (08:39→21:20)
[2016-11-16] MEDS: amLODIPine 5 MG TABLET PO SCH (08:40)
[2016-11-16] MEDS ORDERED: PANTOPRAZOLE 40 MG VIAL IV SCH (09:00)
[2016-11-16] MEDS: ENOXAPARIN 30 MG/0.3 ML SYRINGE SUBCUT SCH (10:36)
--- NOTE | 2016-11-16 11:00 | General Surgery Progress Note ---
Assessment and Plan (1) Small bowel obstruction Status: Acute Assessment and plan: It is difficult to follow the patient exam. She has no ostomy output but her abdomen feels less distended and bowel sounds are starting to improve. We will get a Gastrografin small bowel series today to get more information also for the therapeutic effect of Gastrografin. Current Visit: Yes Subjective Patient reports: Present: no new complaints, afebrile Narrative: Patient is fairly unresponsive but she is breathing normally and wakes up when you ask her questions. Her labs all look better as does her heart rate. Exam - Constitutional Vitals: Period Temp Pulse Resp BP Sys/Tompkins Pulse Ox Last 24 Hr 97.9 F-98.6 F 59-123 16-22 125-191/67-97 94-100 General appearance: normal weight, no acute distress - Head Head exam: Present: normal inspection, normocephalic - Eye Eye exam: Present: EOMI Pupils: Present: MINESH - ENT ENT exam: Present: normal exam Mouth exam: Present: normal external inspection, normal voice - Neck Neck exam: Present: normal inspection, trachea midline - Respiratory Respiratory exam: Present: clear to auscultation bilaterally. Absent: accessory muscle use, chest wall tenderness - Cardiovascular Cardiovascular exam: Present: tachycardia. Absent: irregular rhythm, systolic murmur - GI/Abdominal GI/Abdominal exam: Present: hypoactive bowel sounds, soft. Absent: hernia, tenderness, rebound - Extremities Exam Extremities exam: Present: normal inspection, normal capillary refill - Back Exam Back exam: Present: normal inspection - Neurological Exam Neurological exam: Present: alert, oriented X3 Speech: Present: normal - Skin Skin exam: Present: normal color, warm Results - Labs CBC & BMP: 11/16/16 06:00 11/16/16 06:00
--- NOTE | 2016-11-16 15:54 | Fluoroscopy Report ---
Small bowel series with Gastrografin. Indication: Small bowel obstruction on CT. Since yesterday's exam, a nasogastric tube has been placed. The degree of abdominal distention shows interval improvement. Initially, 120 cc of a 50-50 water Gastrografin mixture was introduced via the nasogastric tube. At 3 hours, an additional 120 cc of a Gastrografin in water mixture was introduced via the nasogastric tube. By 5 hours and 30 minutes, contrast material can be seen within the ostomy bag in the right lower quadrant. This is a colostomy. Additional film obtained at 6 hours and 30 minutes showed replacement of the ostomy bag, and contrast material extending to a normal caliber colon. Small intestine remains dilated with interval improvement. Loops of small intestine measure up to 4.4 cm in diameter. Impression: By 5 hours, contrast material has reached the ostomy. Small intestine remains dilated, but a complete obstruction is not present. PROCEDURE INTERPRETED AT [facility] DEPARTMENT OF RADIOLOGY Final Report Signed by: Dr. Niki Berumen
[2016-11-17] MEDS: LACTATED RINGERS 1,000 ML IV SCH (01:00)
[2016-11-17 05:42] LABS: Basophils # 0.1 10*3/uL (0.0-0.2); Basophils % 0.6 % (0.0-0.8); Eosinophils # 0.2 10*3/uL (0.0-0.87); Eosinophils % 2.8 % (0.00-10.9); Hematocrit 37.4 VOL% (35.7-47.0); Hemoglobin 11.7 GM/DL (12.0-16.0); Immature Granulocytes % 0.4 %; Immature Granulocytes Absolute 0.03 #; Lymphocytes # 1.5 10*3/uL (1.4-4.0); Mean Corpuscular HGB Conc 31.3 GM/DL (32-36); Mean Corpuscular Hemoglobin 30 PG (27-34); Mean Corpuscular Volume 97.1 FL (87-102); Mean Platelet Volume 10.6 FL (9.6-12.0); Monocytes # 0.8 10*3/uL (0.11-0.8); Monocytes % 8.8 % (1.7-12.7); Neutrophils # 5.9 10*3/uL (1.4-7.4); Neutrophils % 69.4 % (38.7-73.9); Platelet Count 186 T/CUMM (130-400); Red Blood Count 3.85 MC/CUMM (3.8-5.5); Red Cell Distribution Width 13.1 % (9.3-17.3); White Blood Count 8.5 T/CUMM (4-12)
[2016-11-17 06:13] LABS: Calcium 8.6 MG/DL (8.5-10.1); Magnesium 2.3 MG/DL (1.8-2.4); Osmolality,Calculated 289.6 MOS/KG (273-304); Potassium 3.6 MMOL/L (3.5-5.1)
[2016-11-17] MEDS: LEVOTHYROXINE 50 MCG TABLET PO SCH (06:21)
[2016-11-17] MEDS: LITHIUM ER 300 MG TABLET PO SCH (08:51)
[2016-11-17] MEDS: amLODIPine 5 MG TABLET PO SCH (08:51)
[2016-11-17] MEDS: PANTOPRAZOLE 40 MG TABLET PO SCH (08:51)
--- NOTE | 2016-11-17 08:59 | XRay Report ---
KUB. Indication: Follow-up small bowel series, follow-up small bowel obstruction. The distal tip of the nasogastric tube is within the fundus of the stomach. Contrast material is within the terminal ileum and a normal caliber colon, as well as the ostomy bag. No evidence of obstruction on this study. Dilated loops of small intestine are still visible, in the left abdomen, measuring up to 5.2 cm. Impression: Marked improvement. No obstruction. PROCEDURE INTERPRETED AT [facility] DEPARTMENT OF RADIOLOGY Final Report Signed by: Dr. Niki Berumen
--- NOTE | 2016-11-17 09:08 | Discharge Summary ---
Hospital Course - Hospital Course Hospital Course: This patient was admitted with apparent small bowel obstruction but her initial CT was done without p.o. contrast. A Gastrografin small bowel series the next day took a little time to get through the patient was treated with an NG tube and Guido and responded well to resuscitation. But showed no obstruction and the patient started having ostomy output afterwards. The next day she had complete resolution of her obstruction with complete passage of contrast into the colon. Her NG tube and Guido removed and she was given a regular diet and discharged back home with her family. Diagnosis - Discharge Diagnosis (1) Small bowel obstruction Status: Acute Discharge Plan - Discharge Data Disposition: Disch To Home/Self Care Condition at Discharge: Stable Discharge Diet: advance to your usual diet Activity: resume usual activities as tolerated Hygiene: no restrictions Weight Bearing at Discharge: weight bear as tolerated Driving: other (Patient unable to drive at baseline) Contact your physician if you experience:: fever over 101, Difficulty voiding, Redness or swelling, Nausea/Vomiting, Shortness of breath, Bleeding, pain uncontrolled by pain medications - Discharge Medications Continue Levothyroxine Tab [Synthroid Tab] 50 mcg PO DAILY@0700 [place] ER Tab 300 mg PO BID Docusate Sodium Cap [Colace Cap] 100 mg PO BID #60 capsule amLODIPine [Norvasc] 5 mg PO DAILY - Follow Up or Referral - Forms/Instructions Exam - Constitutional Vitals: Period Temp Pulse Resp BP Sys/Tompkins Pulse Ox Last 24 Hr 97.8 F-98.8 F 88-108 16-20 120-146/64-77 90-96 General appearance: normal weight, no acute distress - Head Head exam: Present: normal inspection, normocephalic - Eye Eye exam: Present: EOMI Pupils: Present: MINESH - ENT ENT exam: Present: normal exam - Neck Neck exam: Present: normal inspection - Respiratory Respiratory exam: Present: clear to auscultation bilaterally. Absent: accessory muscle use, chest wall tenderness - Cardiovascular Cardiovascular exam: Present: regular rate and rhythm. Absent: systolic murmur , tachycardia - GI/Abdominal GI/Abdominal exam: Present: normal bowel sounds, soft. Absent: tenderness, rebound - Extremities Exam Extremities exam: Present: normal inspection, normal capillary refill - Back Exam Back exam: Present: normal inspection - Neurological Exam Neurological exam: Present: alert, oriented X3 - Psychiatric Psychiatric exam: Present: normal affect, normal mood - Skin Skin exam: Present: normal color, warm Discharge Results Labs on day of discharge: Labs from last 24 hours 11/17/16 11/17/16 04:49 04:49 WBC 8.5 RBC 3.85 Hgb 11.7 L Hct 37.4 MCV 97.1 MCH 30 MCHC 31.3 L RDW 13.1 Plt Count 186 MPV 10.6 Neut % (Auto) 69.4 Lymph % (Auto) 18.0 L Shannon % (Auto) 8.8 Eos % (Auto) 2.8 Baso % (Auto) 0.6 Neut # (Auto) 5.9 Lymph # (Auto) 1.5 Shannon # (Auto) 0.8 Eos # (Auto) 0.2 Baso # (Auto) 0.1 Immature Gran % 0.4 Nucleated RBC % 0.0 Immature Gran # 0.03 Nucleated RBCs # 0.00 Sodium 146 H Potassium 3.6 Chloride 113 H Carbon Dioxide 24 Anion Gap 12.6 BUN 14 D Creatinine 0.70 GFR Calculation 81 BUN/Creatinine Ratio 20.00 Glucose 82 Calculated Osmolality 289.6 Calcium 8.6 Magnesium 2.3 - Imaging and Cardiology Procedure: X-ray: image reviewed by me, report reviewed by me (X-ray today looks significantly improved with no obstruction) DS: Provider Date of admission: 11/15/16 17:01 Primary care physician: . No PCP Attending physician on admission: Prem Pyle MD Consults: 11/15/16 19:04 Consult to Pastoral Services [CONS] Routine Comment: Pastoral Screen: Request Director Executive Communications Visit Pastoral Screen Source of Request: Family Discharging clinician: Gualberto Thompson MD Expected date of discharge: 11/17/16
[2016-11-17] MEDS: ENOXAPARIN 30 MG/0.3 ML SYRINGE SUBCUT SCH (11:28)
[2016-11-17 15:31] VITALS: BP 102/52
== END 2016-11-17 14:19 | disposition home or self-care (01) | DRG 388 ==
LOC: EDBD → EDUNIT# → N.ED 15:07 → N.EDINP 17:25 → N.3E 18:37
PROVIDERS: ADMIT Specialist; ATTEND Specialist

== ENCOUNTER 2020-10-31 10:27 | Inpatient (IN) ==
[2020-10-31] MEDS ORDERED: SODIUM CHLORIDE 0.9% 500 ML IV STA (10:59)
[2020-10-31 11:53] LABS: Basophils # 0.1 10*3/uL (0.0-0.2); Basophils % 0.8 % (0.0-0.8); Eosinophils # 0.1 10*3/uL (0.0-0.87); Eosinophils % 1.4 % (0.00-10.9); Hematocrit 44.8 VOL% (35.7-47.0); Hemoglobin 13.9 GM/DL (12.0-16.0); Immature Granulocytes % 0.5 %; Immature Granulocytes Absolute 0.03 #; Lymphocytes # 1.3 10*3/uL (1.4-4.0); Lymphocytes % 21.2 % (21.3-54.2); Mean Corpuscular Volume 97.2 FL (87-102); Mean Platelet Volume 10.1 FL (9.6-12.0); Monocytes % 9.2 % (1.7-12.7); Neutrophils % 66.9 % (38.7-73.9); Platelet Count 291 T/CUMM (130-400); Red Blood Count 4.61 MC/CUMM (3.8-5.5); Red Cell Distribution Width 14.4 % (9.3-17.3); White Blood Count 5.9 T/CUMM (4-12)
[2020-10-31 12:09] LABS: Alanine Aminotransferase 19 U/L (13-56); Albumin 3.4 G/DL (3.4-5.0); Alkaline Phosphatase 160 U/L (45-117); Aspartate Amino Transferase 18 U/L (0-37); Bilirubin,Total < 0.39 MG/DL (0.2-1.0); Blood Urea Nitrogen 12 MG/DL (7-18); Calcium 9.2 MG/DL (8.5-10.1); Carbon Dioxide 23 MMOL/L (21-32); Estimated Glom Filtration Rate 71 ML/MIN; Glucose 87 MG/DL (74-106); Osmolality,Calculated 271.8 MOS/KG (273-304); Potassium 4.5 MMOL/L (3.5-5.1); Sodium 137 MMOL/L (136-145); Total Protein 7.5 G/DL (6.4-8.2)
[2020-10-31 12:18] LABS: Bilirubin,Urine Negative (Negative); Blood, Urine Negative (Negative); Glucose,Urine (UA) Negative (Negative); Ketones,Urine Negative (Negative); Mucus,Urine Occasional /LPF (Occasional); Nitrite,Urine Negative (Negative); Protein,Urine Negative; RBC,Urine <1 /HPF (0-4); Urine Appearance CLEAR (Clear); Urine Color Straw (Yellow); Urine Specific Gravity 1.009 (1.001-1.035); Urine Urobilinogen < 2.0 EU/DL (0.2-1.0)
[2020-10-31] MEDS ORDERED: DEXTROSE 50% 25 GM/50 ML VIAL IV PRN (15:02)
[2020-10-31] MEDS ORDERED: ONDANSETRON 4 MG/2 ML VIAL IV PRN (15:02)
[2020-10-31] MEDS ORDERED: ACETAMINOPHEN 325 MG TABLET PO PRN (15:02)
[2020-10-31] MEDS ORDERED: GLUCAGON 1 MG VIAL IM PRN (15:02)
[2020-10-31] MEDS: SODIUM CHLORIDE 0.9% 1,000 ML IV SCH (18:12)
[2020-10-31] MEDS: cefTRIAXone 1,000 MG in SODIUM CHLORIDE 0.9% 100 ML IV SCH (18:15)
[2020-10-31] MEDS: GABAPENTIN 100 MG CAPSULE PO SCH (20:55)
[2020-10-31] MEDS: LITHIUM ER 300 MG TABLET PO SCH (20:55)
[2020-11-01] MEDS: LEVOTHYROXINE 50 MCG TABLET PO SCH (05:15)
[2020-11-01] MEDS: SODIUM CHLORIDE 0.9% 1,000 ML IV SCH ×2 (05:19→15:37)
[2020-11-01 06:19] LABS: Basophils # 0.1 10*3/uL (0.0-0.2); Basophils % 0.9 % (0.0-0.8); Eosinophils # 0.1 10*3/uL (0.0-0.87); Eosinophils % 1.8 % (0.00-10.9); Hemoglobin 12.1 GM/DL (12.0-16.0); Immature Granulocytes % 0.6 %; Immature Granulocytes Absolute 0.04 #; Lymphocytes # 1.2 10*3/uL (1.4-4.0); Lymphocytes % 18.1 % (21.3-54.2); Mean Corpuscular HGB Conc 30.3 GM/DL (32-36); Mean Corpuscular Volume 100.5 FL (87-102); Mean Platelet Volume 9.7 FL (9.6-12.0); Monocytes % 10.2 % (1.7-12.7); Neutrophils % 68.4 % (38.7-73.9); Platelet Count 326 T/CUMM (130-400); Red Blood Count 3.98 MC/CUMM (3.8-5.5); Red Cell Distribution Width 14.5 % (9.3-17.3); White Blood Count 6.8 T/CUMM (4-12)
[2020-11-01 06:28] LABS: Albumin 2.9 G/DL (3.4-5.0); Bilirubin,Total 0.8 MG/DL (0.2-1.0); Calcium 8.9 MG/DL (8.5-10.1); Osmolality,Calculated 278.3 MOS/KG (273-304); Potassium 4.2 MMOL/L (3.5-5.1); Thyroid Stimulating Hormone 4.34 uIU/ml (0.358-3.74); Total Protein 6.6 G/DL (6.4-8.2)
[2020-11-01] MEDS: POLYETHYLENE GLYCOL POWDER 17 GM PACK PO SCH (10:08)
[2020-11-01] MEDS: GABAPENTIN 100 MG CAPSULE PO SCH ×3 (10:08→21:22)
[2020-11-01] MEDS: PANTOPRAZOLE 40 MG TABLET PO SCH (10:08)
[2020-11-01] MEDS: DOCUSATE SODIUM 100 MG CAPSULE PO SCH (10:08)
[2020-11-01] MEDS: amLODIPine 10 MG TABLET PO SCH (10:08)
[2020-11-01] MEDS: LITHIUM ER 300 MG TABLET PO SCH ×2 (10:08→21:22)
[2020-11-01 10:29] LABS: Free T4 (Free Thyroxine) 1.01 NG/DL (0.76-1.46)
[2020-11-01] MEDS: cefTRIAXone 1,000 MG in SODIUM CHLORIDE 0.9% 100 ML IV SCH (15:39)
[2020-11-02] MEDS: SODIUM CHLORIDE 0.9% 1,000 ML IV SCH ×2 (03:16→21:30)
[2020-11-02 05:58] LABS: Osmolality,Calculated 285.7 MOS/KG (273-304); Potassium 3.4 MMOL/L (3.5-5.1)
[2020-11-02] MEDS: LEVOTHYROXINE 50 MCG TABLET PO SCH (06:34)
[2020-11-02] MEDS: POLYETHYLENE GLYCOL POWDER 17 GM PACK PO SCH (09:48)
[2020-11-02] MEDS: LITHIUM ER 300 MG TABLET PO SCH ×2 (09:48→21:12)
[2020-11-02] MEDS: DOCUSATE SODIUM 100 MG CAPSULE PO SCH (09:48)
[2020-11-02] MEDS: amLODIPine 10 MG TABLET PO SCH (09:49)
[2020-11-02] MEDS: PANTOPRAZOLE 40 MG TABLET PO SCH (09:49)
[2020-11-02] MEDS: GABAPENTIN 100 MG CAPSULE PO SCH ×3 (09:49→21:12)
[2020-11-02] MEDS: hydrALAZINE 20 MG/1 ML VIAL IV PRN (11:56)
[2020-11-02] MEDS: carvediloL 12.5 MG TABLET PO SCH ×2 (13:51→21:12)
[2020-11-02] MEDS: cefTRIAXone 1,000 MG in SODIUM CHLORIDE 0.9% 100 ML IV SCH (15:08)
[2020-11-03 05:09] LABS: Basophils % 0.6 % (0.0-0.8); Eosinophils # 0.2 10*3/uL (0.0-0.87); Eosinophils % 2.4 % (0.00-10.9); Hemoglobin 11.4 GM/DL (12.0-16.0); Immature Granulocytes % 0.4 %; Immature Granulocytes Absolute 0.03 #; Lymphocytes # 1.5 10*3/uL (1.4-4.0); Lymphocytes % 23.1 % (21.3-54.2); Mean Corpuscular HGB Conc 30.8 GM/DL (32-36); Mean Corpuscular Volume 98.9 FL (87-102); Mean Platelet Volume 9.6 FL (9.6-12.0); Monocytes % 9.6 % (1.7-12.7); Neutrophils % 63.9 % (38.7-73.9); Platelet Count 294 T/CUMM (130-400); Red Blood Count 3.74 MC/CUMM (3.8-5.5); White Blood Count 6.7 T/CUMM (4-12)
[2020-11-03 05:20] LABS: Calcium 8.8 MG/DL (8.5-10.1); Osmolality,Calculated 286.7 MOS/KG (273-304); Potassium 3.2 MMOL/L (3.5-5.1)
[2020-11-03] MEDS: LEVOTHYROXINE 50 MCG TABLET PO SCH (07:58)
[2020-11-03] MEDS: SODIUM CHLORIDE 0.9% 1,000 ML IV SCH (08:57)
[2020-11-03] MEDS: hydrALAZINE 20 MG/1 ML VIAL IV PRN (09:00)
[2020-11-03] MEDS: LITHIUM ER 300 MG TABLET PO SCH ×2 (09:03→21:34)
[2020-11-03] MEDS: carvediloL 12.5 MG TABLET PO SCH ×2 (09:03→21:34)
[2020-11-03] MEDS: DOCUSATE SODIUM 100 MG CAPSULE PO SCH (09:03)
[2020-11-03] MEDS: POLYETHYLENE GLYCOL POWDER 17 GM PACK PO SCH ×2 (09:03→21:35)
[2020-11-03] MEDS: GABAPENTIN 100 MG CAPSULE PO SCH ×3 (09:04→21:35)
[2020-11-03] MEDS: PANTOPRAZOLE 40 MG TABLET PO SCH (09:04)
[2020-11-03] MEDS: POTASSIUM CHLORIDE 20 MEQ TABLET PO PRN ×4 (09:04→23:23)
[2020-11-03] MEDS: amLODIPine 10 MG TABLET PO SCH (09:04)
[2020-11-03] MEDS: LINACLOTIDE 145 MCG CAPSULE PO SCH (09:16)
[2020-11-03] MEDS: cefTRIAXone 1,000 MG in SODIUM CHLORIDE 0.9% 100 ML IV SCH (15:47)
[2020-11-03] MEDS: LACTULOSE 20 GM/30 ML UDCUP PO SCH (21:35)
[2020-11-03] MEDS: LUBIPROSTONE 24 MCG CAPSULE PO SCH (21:37)
[2020-11-04] MEDS: SODIUM CHLORIDE 0.9% 1,000 ML IV SCH ×2 (04:03→04:04)
[2020-11-04] MEDS: LEVOTHYROXINE 50 MCG TABLET PO SCH (05:49)
[2020-11-04] MEDS: LACTULOSE 20 GM/30 ML UDCUP PO SCH (09:47)
[2020-11-04] MEDS: LUBIPROSTONE 24 MCG CAPSULE PO SCH (09:47)
[2020-11-04] MEDS: DOCUSATE SODIUM 100 MG CAPSULE PO SCH (09:47)
[2020-11-04] MEDS: LINACLOTIDE 145 MCG CAPSULE PO SCH (09:47)
[2020-11-04] MEDS: carvediloL 12.5 MG TABLET PO SCH (09:48)
[2020-11-04] MEDS: amLODIPine 10 MG TABLET PO SCH (09:48)
[2020-11-04] MEDS: PANTOPRAZOLE 40 MG TABLET PO SCH (09:48)
[2020-11-04] MEDS: GABAPENTIN 100 MG CAPSULE PO SCH ×2 (09:48→14:58)
[2020-11-04] MEDS: POLYETHYLENE GLYCOL POWDER 17 GM PACK PO SCH (09:48)
[2020-11-04] MEDS: LITHIUM ER 300 MG TABLET PO SCH (09:48)
[2020-11-04 11:10] LABS: Basophils % 0.3 % (0.0-0.8); Eosinophils # 0.1 10*3/uL (0.0-0.87); Eosinophils % 1.8 % (0.00-10.9); Hematocrit 41.5 VOL% (35.7-47.0); Hemoglobin 13.1 GM/DL (12.0-16.0); Immature Granulocytes % 0.3 %; Immature Granulocytes Absolute 0.02 #; Lymphocytes % 13.1 % (21.3-54.2); Mean Corpuscular HGB Conc 31.6 GM/DL (32-36); Mean Corpuscular Volume 97.2 FL (87-102); Mean Platelet Volume 9.7 FL (9.6-12.0); Monocytes % 8.6 % (1.7-12.7); Neutrophils % 75.9 % (38.7-73.9); Platelet Count 291 T/CUMM (130-400); Red Blood Count 4.27 MC/CUMM (3.8-5.5); Red Cell Distribution Width 15.2 % (9.3-17.3); White Blood Count 7.6 T/CUMM (4-12)
[2020-11-04 11:24] LABS: Calcium 8.8 MG/DL (8.5-10.1); Osmolality,Calculated 287.6 MOS/KG (273-304); Potassium 3.7 MMOL/L (3.5-5.1)
[2020-11-04] MEDS: cefTRIAXone 1,000 MG in SODIUM CHLORIDE 0.9% 100 ML IV SCH (16:48)
[2020-11-05] MEDS: carvediloL 12.5 MG TABLET PO SCH ×2 (02:16→09:58)
[2020-11-05] MEDS: LACTULOSE 20 GM/30 ML UDCUP PO SCH ×2 (02:16→09:58)
[2020-11-05] MEDS: LUBIPROSTONE 24 MCG CAPSULE PO SCH ×2 (02:16→11:43)
[2020-11-05] MEDS: LITHIUM ER 300 MG TABLET PO SCH ×2 (02:17→09:58)
[2020-11-05] MEDS: POLYETHYLENE GLYCOL POWDER 17 GM PACK PO SCH ×2 (02:17→09:59)
[2020-11-05] MEDS: GABAPENTIN 100 MG CAPSULE PO SCH ×3 (02:17→14:52)
[2020-11-05] MEDS: SODIUM CHLORIDE 0.9% 1,000 ML IV SCH ×3 (02:18→09:30)
[2020-11-05 04:48] LABS: Basophils # 0.1 10*3/uL (0.0-0.2); Basophils % 0.7 % (0.0-0.8); Eosinophils # 0.2 10*3/uL (0.0-0.87); Eosinophils % 2.6 % (0.00-10.9); Hematocrit 41.9 VOL% (35.7-47.0); Hemoglobin 13.2 GM/DL (12.0-16.0); Immature Granulocytes % 0.4 %; Immature Granulocytes Absolute 0.03 #; Lymphocytes # 1.1 10*3/uL (1.4-4.0); Lymphocytes % 14.2 % (21.3-54.2); Mean Corpuscular HGB Conc 31.5 GM/DL (32-36); Mean Corpuscular Volume 97.9 FL (87-102); Mean Platelet Volume 9.9 FL (9.6-12.0); Monocytes % 9.3 % (1.7-12.7); Neutrophils % 72.8 % (38.7-73.9); Platelet Count 293 T/CUMM (130-400); Red Blood Count 4.28 MC/CUMM (3.8-5.5); Red Cell Distribution Width 14.9 % (9.3-17.3); White Blood Count 7.4 T/CUMM (4-12)
[2020-11-05 04:56] LABS: Calcium 8.8 MG/DL (8.5-10.1); Osmolality,Calculated 283.8 MOS/KG (273-304); Potassium 3.7 MMOL/L (3.5-5.1)
[2020-11-05] MEDS ORDERED: LEVOTHYROXINE 25 MCG TABLET PO SCH (06:00)
[2020-11-05] MEDS: LINACLOTIDE 145 MCG CAPSULE PO SCH (09:58)
[2020-11-05] MEDS: DOCUSATE SODIUM 100 MG CAPSULE PO SCH (09:58)
[2020-11-05] MEDS: amLODIPine 10 MG TABLET PO SCH (09:59)
[2020-11-05] MEDS: PANTOPRAZOLE 40 MG TABLET PO SCH (09:59)
[2020-11-05] MEDS: cefTRIAXone 1,000 MG in SODIUM CHLORIDE 0.9% 100 ML IV SCH (16:00)
[2020-11-05 16:03] VITALS: BP 137/72
== END 2020-11-05 16:47 | disposition home health service (06) | DRG 389 ==
LOC: N.ED 10:27 → N.EDINP 10:27 → SUATTDRO 15:02 → N.3E 17:19 → SUATTDRO 11-01 14:02
PROVIDERS: ADMIT Internal Medicine; ATTEND Hospitalist

== ENCOUNTER 2020-12-29 15:40 | Inpatient (IN) ==
[2020-12-29 18:50] LABS: Basophils # 0.1 10*3/uL (0.0-0.2); Basophils % 0.2 % (0.0-0.8); Eosinophils # 0.1 10*3/uL (0.0-0.87); Eosinophils % 0.5 % (0.00-10.9); Hematocrit 39.8 VOL% (35.7-47.0); Hemoglobin 12.1 GM/DL (12.0-16.0); Immature Granulocytes % 0.8 %; Immature Granulocytes Absolute 0.22 #; Lymphocytes % 3.9 % (21.3-54.2); Mean Corpuscular HGB Conc 30.4 GM/DL (32-36); Mean Corpuscular Volume 98.3 FL (87-102); Mean Platelet Volume 11.7 FL (9.6-12.0); Monocytes % 1.8 % (1.7-12.7); Neutrophils % 92.8 % (38.7-73.9); Platelet Count 180 T/CUMM (130-400); Red Blood Count 4.05 MC/CUMM (3.8-5.5); Red Cell Distribution Width 15.9 % (9.3-17.3); White Blood Count 26.3 T/CUMM (4-12)
[2020-12-29] MEDS ORDERED: cefTRIAXone 1,000 MG in SODIUM CHLORIDE 0.9% 100 ML IV STA (18:55)
[2020-12-29] MEDS ORDERED: AZITHROMYCIN INJ 500 MG in SODIUM CHLORIDE 0.9% 250 ML IV STA (18:55)
[2020-12-29 19:08] LABS: Band Neutrophils 1 % (0-10); Eosinophils 1 % (0-10); Lymphocytes 1 % (20-55); Metamyelocytes 1 %; Segmented Neutrophils 95 % (50-85); Total Cells Counted 100
[2020-12-29 19:09] LABS: Hypochromasia Slight; Platelet Estimate Adequate
[2020-12-29 19:11] LABS: Albumin 3.2 G/DL (3.4-5.0); Bilirubin,Total 0.4 MG/DL (0.20-1.00); Calcium 9.8 MG/DL (8.5-10.1); Osmolality,Calculated 286.3 MOS/KG (273-304); Potassium 3.4 MMOL/L (3.5-5.1)
[2020-12-29] MEDS ORDERED: DEXTROSE 50% 25 GM/50 ML VIAL IV PRN (19:52)
[2020-12-29] MEDS ORDERED: ACETAMINOPHEN 325 MG TABLET PO PRN (19:52)
[2020-12-29] MEDS ORDERED: ONDANSETRON 4 MG/2 ML VIAL IV PRN (19:52)
[2020-12-29] MEDS ORDERED: NICOTINE 21 MG/24 HR PATCH TRANSDERM PRN (19:52)
[2020-12-29] MEDS ORDERED: GLUCAGON 1 MG VIAL IM PRN (19:52)
[2020-12-29] MEDS ORDERED: diphenhydrAMINE CAP 25 MG CAPSULE PO PRN (19:52)
[2020-12-29] MEDS ORDERED: hydrALAZINE 20 MG/1 ML VIAL IV PRN (19:52)
[2020-12-29] MEDS ORDERED: BISACODYL 5 MG TABLET PO PRN (19:52)
[2020-12-29] MEDS ORDERED: ZALEPLON 5 MG CAPSULE PO PRN (19:52)
[2020-12-29] MEDS: HEPARIN 5,000 UNIT/1 ML VIAL SUBCUT SCH (21:10)
[2020-12-29] MEDS: SODIUM CHLORIDE 0.9% 1,000 ML IV SCH (23:05)
[2020-12-30] MEDS: ALBUTEROL/IPRATROPIUM 3 ML NEB RESP TX SCH ×4 (00:20→19:40)
[2020-12-30 05:51] LABS: Calcium 9.7 MG/DL (8.5-10.1); Osmolality,Calculated 287.8 MOS/KG (273-304); Potassium 3.4 MMOL/L (3.5-5.1)
[2020-12-30 05:55] LABS: Basophils # 0.1 10*3/uL (0.0-0.2); Basophils % 0.2 % (0.0-0.8); Eosinophils # 0.2 10*3/uL (0.0-0.87); Eosinophils % 0.8 % (0.00-10.9); Hematocrit 40.4 VOL% (35.7-47.0); Hemoglobin 12.5 GM/DL (12.0-16.0); Immature Granulocytes % 0.5 %; Lymphocytes # 1.1 10*3/uL (1.4-4.0); Lymphocytes % 5.2 % (21.3-54.2); Mean Corpuscular HGB Conc 30.9 GM/DL (32-36); Mean Corpuscular Volume 97.3 FL (87-102); Mean Platelet Volume 12.1 FL (9.6-12.0); Neutrophils % 90.3 % (38.7-73.9); Platelet Count 174 T/CUMM (130-400); Red Blood Count 4.15 MC/CUMM (3.8-5.5); Red Cell Distribution Width 15.9 % (9.3-17.3); White Blood Count 21.3 T/CUMM (4-12)
[2020-12-30 06:10] LABS: Eosinophils 1 % (0-10); Lymphocytes 6 % (20-55); Platelet Estimate Adequate; Segmented Neutrophils 92 % (50-85); Total Cells Counted 100
[2020-12-30 06:11] LABS: Hypochromasia 1+; Microcytosis 1+
[2020-12-30] MEDS: HEPARIN 5,000 UNIT/1 ML VIAL SUBCUT SCH ×2 (09:34→21:17)
[2020-12-30] MEDS: CLINDAMYCIN INJ 600 MG/50 ML PREMIX IV SCH ×3 (09:34→23:56)
[2020-12-30] MEDS ORDERED: POTASSIUM CHLORIDE 20 MEQ TABLET PO ONE (11:30)
[2020-12-30] MEDS ORDERED: ACETYLCYSTEINE 20% 800 MG/4 ML VIAL RESP TX ONE (14:07)
[2020-12-30] MEDS: POTASSIUM CHLORIDE RIDER 10 MEQ/100 ML PREMIX IV SCH ×3 (14:36→15:57)
[2020-12-30] MEDS: GABAPENTIN 100 MG CAPSULE PO SCH ×2 (15:29→21:18)
[2020-12-30] MEDS: cefTRIAXone 1,000 MG in SODIUM CHLORIDE 0.9% 100 ML IV SCH (18:40)
[2020-12-30] MEDS: AZITHROMYCIN INJ 500 MG in SODIUM CHLORIDE 0.9% 250 ML IV SCH (19:20)
[2020-12-30] MEDS: LITHIUM ER 300 MG TABLET PO SCH (21:18)
[2020-12-31] MEDS: ALBUTEROL/IPRATROPIUM 3 ML NEB RESP TX SCH ×4 (00:46→19:35)
[2020-12-31] MEDS: SODIUM CHLORIDE 0.9% 1,000 ML IV SCH ×3 (01:11→18:20)
[2020-12-31 05:52] LABS: Basophils % 0.2 % (0.0-0.8); Eosinophils % 0.1 % (0.00-10.9); Hematocrit 39.7 VOL% (35.7-47.0); Hemoglobin 12.3 GM/DL (12.0-16.0); Immature Granulocytes % 0.4 %; Immature Granulocytes Absolute 0.08 #; Lymphocytes # 0.9 10*3/uL (1.4-4.0); Lymphocytes % 4.8 % (21.3-54.2); Mean Corpuscular Volume 97.8 FL (87-102); Mean Platelet Volume 11.9 FL (9.6-12.0); Neutrophils % 89.5 % (38.7-73.9); Platelet Count 189 T/CUMM (130-400); Red Blood Count 4.06 MC/CUMM (3.8-5.5); Red Cell Distribution Width 16.4 % (9.3-17.3); White Blood Count 17.9 T/CUMM (4-12)
[2020-12-31 06:23] LABS: Calcium 9.2 MG/DL (8.5-10.1); Osmolality,Calculated 295.3 MOS/KG (273-304); Potassium 3.5 MMOL/L (3.5-5.1)
[2020-12-31 06:26] LABS: Lymphocytes 6 % (20-55); Platelet Estimate Adequate; Segmented Neutrophils 92 % (50-85); Total Cells Counted 100
[2020-12-31 06:27] LABS: Hypochromasia Slight; Microcytosis Slight
[2020-12-31] MEDS: LEVOTHYROXINE 50 MCG TABLET PO SCH (07:06)
[2020-12-31] MEDS: LITHIUM ER 300 MG TABLET PO SCH (10:56)
[2020-12-31] MEDS: LINACLOTIDE 145 MCG CAPSULE PO SCH (10:56)
[2020-12-31] MEDS: GABAPENTIN 100 MG CAPSULE PO SCH ×2 (10:57→14:31)
[2020-12-31] MEDS: CLINDAMYCIN INJ 600 MG/50 ML PREMIX IV SCH ×2 (11:03→14:51)
[2020-12-31] MEDS: HEPARIN 5,000 UNIT/1 ML VIAL SUBCUT SCH ×2 (11:04→21:35)
[2020-12-31] MEDS ORDERED: FAT EMULSION 20% 250 ML IV SCH (14:00)
[2020-12-31] MEDS ORDERED: VANCOMYCIN INJ 1,000 MG in SODIUM CHLORIDE 0.9% 250 ML IV ONE (15:45)
[2020-12-31] MEDS ORDERED: DEXTROSE 10% 1,000 ML IV PRN (17:00)
[2020-12-31] MEDS ORDERED: ZINC/COPPER/MANGANESE/SELENIUM 1 ML, MULTIVITAMIN INJ 10 ML in AMINO ACIDS/DEXT/LYTES 4... IV SCH (17:00)
[2020-12-31] MEDS: ACETAMINOPHEN 650 MG SUPP RECTAL PRN (17:03)
[2020-12-31] MEDS: cefTRIAXone 1,000 MG in SODIUM CHLORIDE 0.9% 100 ML IV SCH (18:19)
[2020-12-31] MEDS: AZITHROMYCIN INJ 500 MG in SODIUM CHLORIDE 0.9% 250 ML IV SCH (19:21)
[2021-01-01] MEDS: ALBUTEROL/IPRATROPIUM 3 ML NEB RESP TX SCH ×4 (00:01→19:40)
[2021-01-01] MEDS: CLINDAMYCIN INJ 600 MG/50 ML PREMIX IV SCH ×2 (00:33→21:09)
[2021-01-01] MEDS: GABAPENTIN 100 MG CAPSULE PO SCH ×4 (01:42→21:20)
[2021-01-01] MEDS: LITHIUM ER 300 MG TABLET PO SCH ×3 (01:42→21:20)
[2021-01-01 05:36] LABS: Basophils # 0.1 10*3/uL (0.0-0.2); Basophils % 0.3 % (0.0-0.8); Eosinophils % 0.2 % (0.00-10.9); Hematocrit 39.6 VOL% (35.7-47.0); Hemoglobin 11.9 GM/DL (12.0-16.0); Immature Granulocytes % 0.9 %; Immature Granulocytes Absolute 0.14 #; Lymphocytes # 1.4 10*3/uL (1.4-4.0); Lymphocytes % 9.3 % (21.3-54.2); Mean Corpuscular HGB Conc 30.1 GM/DL (32-36); Mean Corpuscular Volume 97.8 FL (87-102); Mean Platelet Volume 11.5 FL (9.6-12.0); Monocytes % 7.3 % (1.7-12.7); Platelet Count 183 T/CUMM (130-400); Red Blood Count 4.05 MC/CUMM (3.8-5.5); Red Cell Distribution Width 16.7 % (9.3-17.3); White Blood Count 15.4 T/CUMM (4-12)
[2021-01-01 06:34] LABS: Calcium 9.7 MG/DL (8.5-10.1); Osmolality,Calculated 304.6 MOS/KG (273-304); Potassium 3.2 MMOL/L (3.5-5.1)
[2021-01-01] MEDS ORDERED: POTASSIUM CHLORIDE INJ 10 MEQ in DEXTROSE 5% NACL 0.9% 1,000 ML IV SCH (08:30)
[2021-01-01] MEDS ORDERED: POTASSIUM CHLORIDE INJ 10 MEQ in LACTATED RINGERS 1,000 ML IV SCH (11:00)
[2021-01-01] MEDS: POTASSIUM CHLORIDE INJ 10 MEQ in DEXTROSE 5% 1,000 ML IV SCH (12:15)
[2021-01-01] MEDS: HEPARIN 5,000 UNIT/1 ML VIAL SUBCUT SCH ×2 (12:18→21:21)
[2021-01-01] MEDS: LEVOTHYROXINE 50 MCG TABLET PO SCH (12:22)
[2021-01-01] MEDS: LINACLOTIDE 145 MCG CAPSULE PO SCH (12:22)
[2021-01-01] MEDS: FAT EMULSION 20% 250 ML IV SCH (16:18)
[2021-01-01] MEDS: DESITIN 4OZ/NYSTATIN 15 GRAM MIXTURE PASTE TOP SCH ×2 (17:44→21:20)
[2021-01-01] MEDS: cefTRIAXone 1,000 MG in SODIUM CHLORIDE 0.9% 100 ML IV SCH (19:42)
[2021-01-01] MEDS: ZINC/COPPER/MANGANESE/SELENIUM 1 ML, MULTIVITAMIN INJ 10 ML in AMINO ACIDS/DEXT/LYTES 4... IV SCH (19:42)
[2021-01-01] MEDS: ACETAMINOPHEN 650 MG SUPP RECTAL PRN (21:19)
[2021-01-01] MEDS: AZITHROMYCIN INJ 500 MG in SODIUM CHLORIDE 0.9% 250 ML IV SCH (21:20)
[2021-01-02] MEDS: ALBUTEROL/IPRATROPIUM 3 ML NEB RESP TX SCH ×5 (00:55→20:27)
[2021-01-02 04:55] LABS: Basophils # 0.1 10*3/uL (0.0-0.2); Basophils % 0.7 % (0.0-0.8); Eosinophils # 0.1 10*3/uL (0.0-0.87); Eosinophils % 0.9 % (0.00-10.9); Hematocrit 41.1 VOL% (35.7-47.0); Hemoglobin 12.5 GM/DL (12.0-16.0); Immature Granulocytes % 1.4 %; Immature Granulocytes Absolute 0.18 #; Lymphocytes # 1.3 10*3/uL (1.4-4.0); Lymphocytes % 9.6 % (21.3-54.2); Mean Corpuscular HGB Conc 30.4 GM/DL (32-36); Mean Corpuscular Volume 97.6 FL (87-102); Mean Platelet Volume 11.5 FL (9.6-12.0); Monocytes % 9.7 % (1.7-12.7); Neutrophils % 77.7 % (38.7-73.9); Platelet Count 166 T/CUMM (130-400); Red Blood Count 4.21 MC/CUMM (3.8-5.5); Red Cell Distribution Width 16.6 % (9.3-17.3); White Blood Count 13.2 T/CUMM (4-12)
[2021-01-02 05:19] LABS: Albumin 2.5 G/DL (3.4-5.0); Bilirubin,Total 0.5 MG/DL (0.20-1.00); Calcium 9.3 MG/DL (8.5-10.1); Osmolality,Calculated 308.6 MOS/KG (273-304); Potassium 3.3 MMOL/L (3.5-5.1); Total Protein 6.8 G/DL (6.4-8.2)
[2021-01-02] MEDS: LEVOTHYROXINE 100 MCG VIAL IV SCH (05:41)
[2021-01-02] MEDS: GABAPENTIN 100 MG CAPSULE PO SCH (09:10)
[2021-01-02] MEDS: LITHIUM ER 300 MG TABLET PO SCH (09:10)
[2021-01-02] MEDS: LINACLOTIDE 145 MCG CAPSULE PO SCH (09:10)
[2021-01-02] MEDS: DESITIN 4OZ/NYSTATIN 15 GRAM MIXTURE PASTE TOP SCH ×2 (09:53→21:05)
[2021-01-02] MEDS: HEPARIN 5,000 UNIT/1 ML VIAL SUBCUT SCH ×2 (09:53→21:04)
[2021-01-02] MEDS: cefTRIAXone 1,000 MG in SODIUM CHLORIDE 0.9% 100 ML IV SCH (09:53)
[2021-01-02] MEDS: FAT EMULSION 20% 250 ML IV SCH (15:38)
[2021-01-02] MEDS: POTASSIUM CHLORIDE INJ 10 MEQ in DEXTROSE 5% 1,000 ML IV SCH (15:40)
[2021-01-02] MEDS: ZINC/COPPER/MANGANESE/SELENIUM 1 ML, MULTIVITAMIN INJ 10 ML in AMINO ACIDS/DEXT/LYTES 4... IV SCH (17:24)
[2021-01-02] MEDS: AZITHROMYCIN INJ 500 MG in SODIUM CHLORIDE 0.9% 250 ML IV SCH (21:04)
[2021-01-03 00:47] LABS: Bilirubin,Urine Negative (Negative); Blood, Urine Small mg/dL (Negative); Glucose,Urine (UA) Negative (Negative); Ketones,Urine Negative (Negative); Nitrite,Urine Negative (Negative); Protein,Urine Negative; RBC,Urine 4 /HPF (0-4); Urine Appearance Clear (Clear); Urine Color Yellow (Yellow); Urine Urobilinogen 0.2 EU/DL (0.2-1.0)
[2021-01-03 00:48] LABS: Mucus,Urine Occasional /LPF (Occasional)
[2021-01-03] MEDS: ALBUTEROL/IPRATROPIUM 3 ML NEB RESP TX SCH ×4 (01:30→20:32)
[2021-01-03 05:43] LABS: Basophils % 0.5 % (0.0-0.8); Eosinophils # 0.3 10*3/uL (0.0-0.87); Hematocrit 38.1 VOL% (35.7-47.0); Hemoglobin 11.5 GM/DL (12.0-16.0); Immature Granulocytes % 1.4 %; Immature Granulocytes Absolute 0.12 #; Lymphocytes # 1.6 10*3/uL (1.4-4.0); Lymphocytes % 18.3 % (21.3-54.2); Mean Corpuscular HGB Conc 30.2 GM/DL (32-36); Mean Platelet Volume 11.6 FL (9.6-12.0); Monocytes % 10.7 % (1.7-12.7); Neutrophils % 66.1 % (38.7-73.9); Platelet Count 169 T/CUMM (130-400); Red Blood Count 3.85 MC/CUMM (3.8-5.5); Red Cell Distribution Width 16.8 % (9.3-17.3); White Blood Count 8.5 T/CUMM (4-12)
[2021-01-03 06:01] LABS: Calcium 9.3 MG/DL (8.5-10.1); Osmolality,Calculated 296.4 MOS/KG (273-304); Potassium 3.5 MMOL/L (3.5-5.1)
[2021-01-03] MEDS: LEVOTHYROXINE 100 MCG VIAL IV SCH (06:01)
[2021-01-03] MEDS: HEPARIN 5,000 UNIT/1 ML VIAL SUBCUT SCH (09:49)
[2021-01-03] MEDS: cefTRIAXone 1,000 MG in SODIUM CHLORIDE 0.9% 100 ML IV SCH (10:10)
[2021-01-03] MEDS: DESITIN 4OZ/NYSTATIN 15 GRAM MIXTURE PASTE TOP SCH ×2 (10:11→22:01)
[2021-01-03] MEDS ORDERED: FAT EMULSION 20% 250 ML IV SCH (14:00)
[2021-01-03] MEDS: POTASSIUM CHLORIDE INJ 10 MEQ in DEXTROSE 5% 1,000 ML IV SCH (18:15)
[2021-01-03] MEDS: ZINC/COPPER/MANGANESE/SELENIUM 1 ML, MULTIVITAMIN INJ 10 ML in AMINO ACIDS/DEXT/LYTES 4... IV SCH (19:49)
[2021-01-04] MEDS: ALBUTEROL/IPRATROPIUM 3 ML NEB RESP TX SCH ×4 (00:35→19:02)
[2021-01-04 05:21] LABS: Basophils # 0.1 10*3/uL (0.0-0.2); Basophils % 0.8 % (0.0-0.8); Eosinophils # 0.4 10*3/uL (0.0-0.87); Eosinophils % 5.6 % (0.00-10.9); Hematocrit 37.3 VOL% (35.7-47.0); Hemoglobin 11.4 GM/DL (12.0-16.0); Immature Granulocytes % 1.9 %; Immature Granulocytes Absolute 0.12 #; Lymphocytes # 1.4 10*3/uL (1.4-4.0); Mean Corpuscular HGB Conc 30.6 GM/DL (32-36); Mean Corpuscular Volume 97.4 FL (87-102); Mean Platelet Volume 11.7 FL (9.6-12.0); Monocytes % 14.8 % (1.7-12.7); Neutrophils % 54.9 % (38.7-73.9); Platelet Count 166 T/CUMM (130-400); Red Blood Count 3.83 MC/CUMM (3.8-5.5); Red Cell Distribution Width 16.6 % (9.3-17.3); White Blood Count 6.3 T/CUMM (4-12)
[2021-01-04 05:36] LABS: Calcium 8.8 MG/DL (8.5-10.1); Osmolality,Calculated 292.6 MOS/KG (273-304); Potassium 3.8 MMOL/L (3.5-5.1)
[2021-01-04] MEDS: LEVOTHYROXINE 100 MCG VIAL IV SCH (05:36)
[2021-01-04] MEDS: POTASSIUM CHLORIDE INJ 10 MEQ in DEXTROSE 5% 1,000 ML IV SCH (06:30)
[2021-01-04] MEDS: cefTRIAXone 1,000 MG in SODIUM CHLORIDE 0.9% 100 ML IV SCH (10:19)
[2021-01-04] MEDS: DESITIN 4OZ/NYSTATIN 15 GRAM MIXTURE PASTE TOP SCH ×2 (10:20→21:16)
[2021-01-04] MEDS ORDERED: ACETAMINOPHEN 325 MG/10.15 ML UDCUP PO PRN (10:30)
[2021-01-04 13:05] LABS: Appearance,CSF Clear; Lymphocytes,CSF 100 %; Red Blood Cell,CSF < 1 C/CUMM; White Blood Cell,CSF 13 C/CUMM
[2021-01-04] MEDS: GABAPENTIN 50 MG/ML 30 ML/BOTTLE PO SCH ×2 (16:09→21:15)
[2021-01-04] MEDS: ENOXAPARIN 40 MG/0.4 ML SYRINGE SUBCUT SCH (19:07)
[2021-01-04] MEDS ORDERED: LITHIUM 300 MG CAPSULE PO SCH (21:00)
[2021-01-04] MEDS ORDERED: cefTRIAXone 1,000 MG VIAL IM SCH (21:00)
[2021-01-04] MEDS: methylPREDNISolone SOD SUC 40 MG/1 ML VIAL IV SCH (21:16)
[2021-01-04] MEDS: ACYCLOVIR INJ 500 MG in SODIUM CHLORIDE 0.9% 100 ML IV SCH (22:04)
[2021-01-04] MEDS: LITHIUM ER 300 MG TABLET PO SCH (23:30)
[2021-01-05] MEDS: POTASSIUM CHLORIDE INJ 10 MEQ in DEXTROSE 5% 1,000 ML IV SCH ×2 (00:19→03:05)
[2021-01-05] MEDS: ALBUTEROL/IPRATROPIUM 3 ML NEB RESP TX SCH ×4 (00:50→20:10)
[2021-01-05] MEDS: ACYCLOVIR INJ 500 MG in SODIUM CHLORIDE 0.9% 100 ML IV SCH ×3 (05:25→22:29)
[2021-01-05] MEDS: methylPREDNISolone SOD SUC 40 MG/1 ML VIAL IV SCH ×3 (05:30→21:35)
[2021-01-05] MEDS: PANTOPRAZOLE 40 MG VIAL IV SCH (05:46)
[2021-01-05] MEDS: LEVOTHYROXINE 100 MCG VIAL IV SCH (05:48)
[2021-01-05] MEDS: DESITIN 4OZ/NYSTATIN 15 GRAM MIXTURE PASTE TOP SCH ×2 (09:36→21:45)
[2021-01-05] MEDS: GABAPENTIN 50 MG/ML 30 ML/BOTTLE PO SCH ×3 (09:36→22:10)
[2021-01-05] MEDS: LINACLOTIDE 145 MCG CAPSULE PO SCH (09:36)
[2021-01-05] MEDS: LITHIUM ER 300 MG TABLET PO SCH ×2 (09:37→21:35)
[2021-01-05] MEDS: ENOXAPARIN 40 MG/0.4 ML SYRINGE SUBCUT SCH (16:30)
[2021-01-05] MEDS ORDERED: cefTRIAXone 2,000 MG VIAL IV SCH (21:00)
[2021-01-06] MEDS: ALBUTEROL/IPRATROPIUM 3 ML NEB RESP TX SCH ×4 (00:30→19:21)
[2021-01-06] MEDS: POTASSIUM CHLORIDE INJ 10 MEQ in DEXTROSE 5% 1,000 ML IV SCH (00:58)
[2021-01-06] MEDS: ACYCLOVIR INJ 500 MG in SODIUM CHLORIDE 0.9% 100 ML IV SCH ×3 (04:11→21:33)
[2021-01-06] MEDS: methylPREDNISolone SOD SUC 40 MG/1 ML VIAL IV SCH ×3 (04:12→21:40)
[2021-01-06 05:33] LABS: Basophils % 0.1 % (0.0-0.8); Hematocrit 37.1 VOL% (35.7-47.0); Hemoglobin 11.7 GM/DL (12.0-16.0); Immature Granulocytes % 1.1 %; Immature Granulocytes Absolute 0.14 #; Lymphocytes # 0.7 10*3/uL (1.4-4.0); Lymphocytes % 5.9 % (21.3-54.2); Mean Corpuscular HGB Conc 31.5 GM/DL (32-36); Mean Corpuscular Volume 97.1 FL (87-102); Mean Platelet Volume 11.5 FL (9.6-12.0); Monocytes % 4.2 % (1.7-12.7); Neutrophils % 88.7 % (38.7-73.9); Platelet Count 257 T/CUMM (130-400); Red Blood Count 3.82 MC/CUMM (3.8-5.5); Red Cell Distribution Width 15.7 % (9.3-17.3); White Blood Count 12.3 T/CUMM (4-12)
[2021-01-06] MEDS: LEVOTHYROXINE 100 MCG VIAL IV SCH (05:35)
[2021-01-06] MEDS: PANTOPRAZOLE 40 MG VIAL IV SCH (05:37)
[2021-01-06 05:45] LABS: Calcium 8.9 MG/DL (8.5-10.1); Osmolality,Calculated 290.4 MOS/KG (273-304); Potassium 3.4 MMOL/L (3.5-5.1)
[2021-01-06] MEDS: LITHIUM ER 300 MG TABLET PO SCH ×2 (09:42→21:40)
[2021-01-06] MEDS: GABAPENTIN 50 MG/ML 30 ML/BOTTLE PO SCH ×3 (09:43→21:40)
[2021-01-06] MEDS: LINACLOTIDE 145 MCG CAPSULE PO SCH (09:43)
[2021-01-06] MEDS: DESITIN 4OZ/NYSTATIN 15 GRAM MIXTURE PASTE TOP SCH ×2 (09:43→21:40)
[2021-01-06] MEDS ORDERED: DEXTROSE 50% 25 GM/50 ML VIAL IV PRN (10:13)
[2021-01-06] MEDS ORDERED: GLUCAGON 1 MG VIAL IM PRN (10:13)
[2021-01-06] MEDS: INSULIN REGULAR 100 UNIT/ML SUBCUT SCH ×3 (13:05→22:53)
[2021-01-06] MEDS: ENOXAPARIN 40 MG/0.4 ML SYRINGE SUBCUT SCH (17:46)
[2021-01-06] MEDS: cefTRIAXone 2,000 MG in SODIUM CHLORIDE 0.9% 100 ML IV SCH (21:33)
[2021-01-07] MEDS: ALBUTEROL/IPRATROPIUM 3 ML NEB RESP TX SCH ×4 (00:02→19:20)
[2021-01-07] MEDS: PANTOPRAZOLE 40 MG VIAL IV SCH (05:33)
[2021-01-07] MEDS: LEVOTHYROXINE 100 MCG VIAL IV SCH (05:33)
[2021-01-07] MEDS: methylPREDNISolone SOD SUC 40 MG/1 ML VIAL IV SCH ×3 (05:34→20:28)
[2021-01-07] MEDS: ACYCLOVIR INJ 500 MG in SODIUM CHLORIDE 0.9% 100 ML IV SCH ×3 (05:48→20:26)
[2021-01-07 09:53] LABS: Basophils % 0.2 % (0.0-0.8); Hemoglobin 11.1 GM/DL (12.0-16.0); Immature Granulocytes % 1.6 %; Lymphocytes # 0.5 10*3/uL (1.4-4.0); Lymphocytes % 3.6 % (21.3-54.2); Mean Corpuscular Volume 98.7 FL (87-102); Mean Platelet Volume 11.1 FL (9.6-12.0); Monocytes % 5.2 % (1.7-12.7); Neutrophils % 89.4 % (38.7-73.9); Platelet Count 312 T/CUMM (130-400); Red Blood Count 3.75 MC/CUMM (3.8-5.5); Red Cell Distribution Width 16.2 % (9.3-17.3); White Blood Count 12.8 T/CUMM (4-12)
[2021-01-07] MEDS: LINACLOTIDE 145 MCG CAPSULE PO SCH (10:04)
[2021-01-07] MEDS: INSULIN REGULAR 100 UNIT/ML SUBCUT SCH ×4 (10:04→21:30)
[2021-01-07] MEDS: LITHIUM ER 300 MG TABLET PO SCH ×2 (10:04→20:29)
[2021-01-07] MEDS: GABAPENTIN 50 MG/ML 30 ML/BOTTLE PO SCH ×3 (10:05→21:10)
[2021-01-07] MEDS: DESITIN 4OZ/NYSTATIN 15 GRAM MIXTURE PASTE TOP SCH ×2 (10:06→21:10)
[2021-01-07 10:09] LABS: Calcium 8.7 MG/DL (8.5-10.1); Potassium 3.3 MMOL/L (3.5-5.1)
[2021-01-07 10:16] LABS: Band Neutrophils 7 % (0-10); Lymphocytes 4 % (20-55); Segmented Neutrophils 81 % (50-85); Total Cells Counted 100
[2021-01-07 10:17] LABS: Anisocytosis 1+; Platelet Estimate Normal
[2021-01-07 10:18] LABS: Macrocytosis Slight
[2021-01-07] MEDS: POTASSIUM CHLORIDE INJ 10 MEQ in DEXTROSE 5% 1,000 ML IV SCH ×2 (16:28→16:46)
[2021-01-07] MEDS: ENOXAPARIN 40 MG/0.4 ML SYRINGE SUBCUT SCH (16:31)
[2021-01-07] MEDS: cefTRIAXone 2,000 MG in SODIUM CHLORIDE 0.9% 100 ML IV SCH (21:11)
[2021-01-08] MEDS: ALBUTEROL/IPRATROPIUM 3 ML NEB RESP TX SCH ×4 (00:19→20:45)
[2021-01-08] MEDS: methylPREDNISolone SOD SUC 40 MG/1 ML VIAL IV SCH ×3 (04:31→21:25)
[2021-01-08] MEDS: ACYCLOVIR INJ 500 MG in SODIUM CHLORIDE 0.9% 100 ML IV SCH (04:31)
[2021-01-08 06:21] LABS: Basophils % 0.3 % (0.0-0.8); Hematocrit 36.6 VOL% (35.7-47.0); Hemoglobin 11.4 GM/DL (12.0-16.0); Immature Granulocytes % 2.7 %; Immature Granulocytes Absolute 0.34 #; Lymphocytes # 0.7 10*3/uL (1.4-4.0); Lymphocytes % 5.3 % (21.3-54.2); Mean Corpuscular HGB Conc 31.1 GM/DL (32-36); Mean Corpuscular Volume 97.6 FL (87-102); Mean Platelet Volume 11.1 FL (9.6-12.0); Monocytes % 5.4 % (1.7-12.7); Neutrophils % 86.3 % (38.7-73.9); Platelet Count 344 T/CUMM (130-400); Red Blood Count 3.75 MC/CUMM (3.8-5.5); Red Cell Distribution Width 16.1 % (9.3-17.3); White Blood Count 12.7 T/CUMM (4-12)
[2021-01-08 06:36] LABS: Calcium 8.8 MG/DL (8.5-10.1); Osmolality,Calculated 293.1 MOS/KG (273-304); Potassium 3.7 MMOL/L (3.5-5.1)
[2021-01-08 06:46] LABS: Alanine Aminotransferase 107 U/L (13-56); Albumin 2.6 G/DL (3.4-5.0); Alkaline Phosphatase 169 U/L (45-117); Aspartate Amino Transferase 40 U/L (0-37); Bilirubin,Total < 0.39 MG/DL (0.20-1.00); Blood Urea Nitrogen 23 MG/DL (7-18); Calcium 8.9 MG/DL (8.5-10.1); Carbon Dioxide 20 MMOL/L (21-32); Estimated Glom Filtration Rate 82 ML/MIN; Glucose 222 MG/DL (74-106); Osmolality,Calculated 291.3 MOS/KG (273-304); Potassium 3.7 MMOL/L (3.5-5.1); Sodium 141 MMOL/L (136-145); Total Protein 6.6 G/DL (6.4-8.2)
[2021-01-08] MEDS: GABAPENTIN 50 MG/ML 30 ML/BOTTLE PO SCH ×3 (09:49→21:25)
[2021-01-08] MEDS: LITHIUM ER 300 MG TABLET PO SCH ×2 (09:50→21:25)
[2021-01-08] MEDS: PANTOPRAZOLE 40 MG VIAL IV SCH (09:50)
[2021-01-08] MEDS: INSULIN REGULAR 100 UNIT/ML SUBCUT SCH ×4 (09:50→21:24)
[2021-01-08] MEDS: LEVOTHYROXINE 100 MCG VIAL IV SCH (09:51)
[2021-01-08] MEDS: DESITIN 4OZ/NYSTATIN 15 GRAM MIXTURE PASTE TOP SCH ×2 (09:53→21:26)
[2021-01-08 12:36] LABS: West Nile Virus Ab, IgG, CSF Negative (Negative); West Nile Virus Ab, IgM, CSF Negative (Negative)
[2021-01-08] MEDS: cefTRIAXone 2,000 MG in SODIUM CHLORIDE 0.9% 100 ML IV SCH (21:24)
[2021-01-08] MEDS: ENOXAPARIN 40 MG/0.4 ML SYRINGE SUBCUT SCH (21:24)
[2021-01-09] MEDS: ALBUTEROL/IPRATROPIUM 3 ML NEB RESP TX SCH ×4 (01:55→20:43)
[2021-01-09 05:18] LABS: Basophils % 0.2 % (0.0-0.8); Hematocrit 39.1 VOL% (35.7-47.0); Hemoglobin 11.9 GM/DL (12.0-16.0); Immature Granulocytes % 2.6 %; Lymphocytes # 0.6 10*3/uL (1.4-4.0); Lymphocytes % 5.3 % (21.3-54.2); Mean Corpuscular HGB Conc 30.4 GM/DL (32-36); Mean Platelet Volume 10.8 FL (9.6-12.0); Monocytes % 4.6 % (1.7-12.7); Neutrophils % 87.3 % (38.7-73.9); Platelet Count 360 T/CUMM (130-400); Red Blood Count 3.99 MC/CUMM (3.8-5.5); Red Cell Distribution Width 15.8 % (9.3-17.3); White Blood Count 11.4 T/CUMM (4-12)
[2021-01-09 05:19] LABS: Calcium 8.7 MG/DL (8.5-10.1); Osmolality,Calculated 296.8 MOS/KG (273-304); Potassium 4.4 MMOL/L (3.5-5.1)
[2021-01-09] MEDS: LEVOTHYROXINE 100 MCG VIAL IV SCH (06:42)
[2021-01-09] MEDS: methylPREDNISolone SOD SUC 40 MG/1 ML VIAL IV SCH ×2 (06:42→13:12)
[2021-01-09] MEDS: OMEPRAZOLE ODT 20 MG TABLET PER TUBE SCH (06:42)
[2021-01-09] MEDS: GABAPENTIN 50 MG/ML 30 ML/BOTTLE PO SCH ×3 (09:36→21:46)
[2021-01-09] MEDS: INSULIN REGULAR 100 UNIT/ML SUBCUT SCH ×4 (09:37→21:42)
[2021-01-09] MEDS: LITHIUM ER 300 MG TABLET PO SCH ×2 (09:38→21:46)
[2021-01-09] MEDS: DESITIN 4OZ/NYSTATIN 15 GRAM MIXTURE PASTE TOP SCH ×2 (09:39→21:42)
[2021-01-09] MEDS ORDERED: LACOSAMIDE INJ 200 MG in SODIUM CHLORIDE 0.9% 50 ML IV ONE (17:00)
[2021-01-09] MEDS: cefTRIAXone 2,000 MG in SODIUM CHLORIDE 0.9% 100 ML IV SCH (21:42)
[2021-01-10] MEDS: ALBUTEROL/IPRATROPIUM 3 ML NEB RESP TX SCH ×4 (01:35→20:09)
[2021-01-10 05:24] LABS: PT Patient Result 10.8 SECS (10.5-12.0)
[2021-01-10] MEDS: LEVOTHYROXINE 100 MCG VIAL IV SCH (06:26)
[2021-01-10] MEDS: OMEPRAZOLE ODT 20 MG TABLET PER TUBE SCH (06:27)
[2021-01-10] MEDS ORDERED: LACTATED RINGERS 1,000 ML IV SCH (08:00)
[2021-01-10] MEDS: INSULIN REGULAR 100 UNIT/ML SUBCUT SCH ×4 (08:37→21:43)
[2021-01-10] MEDS ORDERED: LACOSAMIDE INJ 150 MG in SODIUM CHLORIDE 0.9% 50 ML IV SCH (09:00)
[2021-01-10] MEDS: DESITIN 4OZ/NYSTATIN 15 GRAM MIXTURE PASTE TOP SCH ×2 (09:50→22:00)
[2021-01-10] MEDS: LITHIUM ER 300 MG TABLET PO SCH ×2 (10:25→20:44)
[2021-01-10] MEDS: GABAPENTIN 50 MG/ML 30 ML/BOTTLE PO SCH ×3 (10:25→20:45)
[2021-01-10] MEDS ORDERED: LIDOCAINE 2% 5 ML VIAL ONE (12:56)
[2021-01-10] MEDS ORDERED: propofoL 200 MG/20 ML VIAL IV ONE (12:56)
[2021-01-10] MEDS ORDERED: ETOMIDATE 20 MG/10 ML VIAL IV ONE (12:56)
[2021-01-10] MEDS ORDERED: LABETALOL 20 MG/4 ML SYRINGE IV ONE (13:49)
[2021-01-10] MEDS: cefTRIAXone 2,000 MG in SODIUM CHLORIDE 0.9% 100 ML IV SCH (20:35)
[2021-01-10] MEDS: guaiFENesin/DM ER 600-30 MG TABLET PO PRN (20:44)
[2021-01-10] MEDS: LACOSAMIDE INJ 200 MG in SODIUM CHLORIDE 0.9% 50 ML IV SCH (21:59)
[2021-01-11] MEDS: ALBUTEROL/IPRATROPIUM 3 ML NEB RESP TX SCH ×4 (00:46→19:08)
[2021-01-11] MEDS: OMEPRAZOLE ODT 20 MG TABLET PER TUBE SCH (05:45)
[2021-01-11] MEDS: LEVOTHYROXINE 100 MCG VIAL IV SCH (05:45)
[2021-01-11 07:01] LABS: Calcium 8.2 MG/DL (8.5-10.1); Osmolality,Calculated 292.7 MOS/KG (273-304); Potassium 4.3 MMOL/L (3.5-5.1)
[2021-01-11] MEDS: INSULIN REGULAR 100 UNIT/ML SUBCUT SCH ×4 (08:03→20:10)
[2021-01-11] MEDS: LACOSAMIDE INJ 200 MG in SODIUM CHLORIDE 0.9% 50 ML IV SCH ×2 (09:29→21:12)
[2021-01-11] MEDS: GABAPENTIN 50 MG/ML 30 ML/BOTTLE PO SCH ×3 (09:30→19:59)
[2021-01-11] MEDS: LITHIUM ER 300 MG TABLET PO SCH ×2 (09:30→19:59)
[2021-01-11] MEDS: DESITIN 4OZ/NYSTATIN 15 GRAM MIXTURE PASTE TOP SCH (09:30)
[2021-01-11] MEDS: guaiFENesin/DM ER 600-30 MG TABLET PO PRN (19:54)
[2021-01-11] MEDS: cefTRIAXone 2,000 MG in SODIUM CHLORIDE 0.9% 100 ML IV SCH (19:59)
[2021-01-11] MEDS: ENOXAPARIN 40 MG/0.4 ML SYRINGE SUBCUT SCH (19:59)
[2021-01-12] MEDS: DESITIN 4OZ/NYSTATIN 15 GRAM MIXTURE PASTE TOP SCH ×3 (00:11→22:33)
[2021-01-12] MEDS: ALBUTEROL/IPRATROPIUM 3 ML NEB RESP TX SCH ×4 (01:20→20:16)
[2021-01-12] MEDS: OMEPRAZOLE ODT 20 MG TABLET PER TUBE SCH (05:51)
[2021-01-12] MEDS: LEVOTHYROXINE 100 MCG VIAL IV SCH (05:52)
[2021-01-12] MEDS: INSULIN REGULAR 100 UNIT/ML SUBCUT SCH ×4 (07:26→21:00)
[2021-01-12] MEDS: LACOSAMIDE INJ 200 MG in SODIUM CHLORIDE 0.9% 50 ML IV SCH (10:26)
[2021-01-12] MEDS: LITHIUM ER 300 MG TABLET PO SCH ×2 (11:00→22:33)
[2021-01-12] MEDS: GABAPENTIN 50 MG/ML 30 ML/BOTTLE PO SCH ×3 (12:12→22:33)
[2021-01-12] MEDS: cefTRIAXone 2,000 MG in SODIUM CHLORIDE 0.9% 100 ML IV SCH (22:30)
[2021-01-12] MEDS: ENOXAPARIN 40 MG/0.4 ML SYRINGE SUBCUT SCH (22:31)
[2021-01-12] MEDS: LACOSAMIDE 50 MG TABLET PEG SCH (22:32)
[2021-01-12] MEDS: guaiFENesin/DM ER 600-30 MG TABLET PO PRN (22:34)
[2021-01-12] MEDS: levETIRAcetam LIQUID 100 MG/ML 30 ML/BOTTLE PEG SCH (23:05)
[2021-01-13] MEDS: ALBUTEROL/IPRATROPIUM 3 ML NEB RESP TX SCH ×2 (02:31→07:25)
[2021-01-13] MEDS: OMEPRAZOLE ODT 20 MG TABLET PER TUBE SCH (05:37)
[2021-01-13] MEDS: LEVOTHYROXINE 100 MCG VIAL IV SCH (05:38)
[2021-01-13] MEDS: INSULIN REGULAR 100 UNIT/ML SUBCUT SCH ×2 (11:17→12:22)
[2021-01-13] MEDS: LACOSAMIDE 50 MG TABLET PEG SCH (11:28)
[2021-01-13] MEDS: LITHIUM ER 300 MG TABLET PO SCH (11:28)
[2021-01-13] MEDS: GABAPENTIN 50 MG/ML 30 ML/BOTTLE PO SCH (11:29)
[2021-01-13] MEDS: DESITIN 4OZ/NYSTATIN 15 GRAM MIXTURE PASTE TOP SCH (11:29)
[2021-01-13] MEDS: levETIRAcetam LIQUID 100 MG/ML 30 ML/BOTTLE PEG SCH (11:29)
[2021-01-13 11:58] VITALS: BP 115/61
== END 2021-01-13 13:50 | disposition home health service (06) | DRG 177 ==
LOC: EDUNIT# → EDBD → N.ED 15:40 → N.EDINP 19:52 → SUATTDRO 19:52 → N.5E 21:21
PROVIDERS: ADMIT Hospitalist; ATTEND Internal Medicine Geriatric Medicine
PROC: EGDWPEG (ICD-10-PCS; 2021-01-10 11:35)